=== PATIENT | male | born 1945 | race Caucasian/White ===

== ENCOUNTER 2019-11-20 10:53 | Outpatient (CLI) | payer MEDICARE, SELFPAY ==
--- NOTE | ~2019-11-20 | US_ITS ---
US breast RT complete INDICATION: Breast tenderness TECHNIQUE: Dedicated right breast ultrasound COMPARISON: No prior studies for comparison. FINDINGS: The right breast is composed of normal heterogeneous echotexture without focal solid or cys tic mass. A breast bud is noted in the subareolar location of the right breast, consistent with gynec omastia. IMPRESSION: 1: Gynecomastia. No sonographic evidence for malignancy. BI-RADS CATEGORY 2 - BENIGN FINDINGS Reviewed, dictated and finalized at location A.
== END 2019-11-20 10:54 | disposition home or self-care (01) ==
PROVIDERS: PCP Family Medicine; Visit Provider Family Medicine
DX: N64.4 Mastodynia (principal); N62 Hypertrophy of breast
CPT/HCPCS: 76641

== ENCOUNTER 2019-11-29 10:11 | Outpatient (CLI) | payer MEDICARE, SELFPAY ==
[2019-11-29 11:45] LABS: Parathyroid Intact 41.3 pg/mL (7.5-53.5)
[2019-11-29 13:27] LABS: Free T4 Free Thyroxine 1.08 ng/mL (0.78-2.19)
[2019-12-02 15:55] LABS: Testosterone Free 22.9 pg/mL (30.0-135.0); Testosterone Total 214 ng/dL (250-1100)
[2019-12-03 06:21] LABS: FSH 15.8 mIU/mL (1.6-8.0); LH 8.9 mIU/mL (1.6-15.2)
== END 2019-11-29 10:12 | disposition home or self-care (01) ==
PROVIDERS: PCP Family Medicine; Visit Provider Family Medicine
DX: N62 Hypertrophy of breast (principal); Z79.899 Other long term (current) drug therapy
CPT/HCPCS: 36415; 83001; 83002; 83970; 84402; 84403; 84439; 84443

== ENCOUNTER 2019-12-21 10:33 | Outpatient (CLI) | payer MEDICARE, SELFPAY ==
--- NOTE | ~2019-12-21 | MR_ITS ---
EXAMINATION: MR lumbar spine wo [facility] EXAM DATE: 12/21/2019 12:16 INDICATION: Left leg pain. TECHNIQUE: Multi-sequential, multiplanar MR images of the lumbar spine were obtained without contrast . Sagittal T1, T2, T2 fat saturation images. Axial T2 weighted images. There is no prior study for comparison. FINDINGS: Moderate to severe disc disease at L2-3 and L5-S1, moderate at the other lumbar levels. The conus medullaris terminates at the L1/2 level and has normal signal intensity and morphology. There is 3 mm retrolisthesis L2 on L3, L3 on L4. There is 4 mm retrolisthesis L5 on S1. 3 mm anterolisthes is L4 on L5. Mild diffuse loss of vertebral body heights. Paraspinal soft tissue is unremarkable. Level by level evaluation: T12-L1: Disc does not extend beyond the endplate margin. Facet arthropathy: Mild to moderate. Neural foraminal stenosis: No stenosis. Central canal stenosis: No stenosis. L1-L2: There is a mild diffuse disc bulge. Facet arthropathy: Mild to moderate. Neural foraminal stenosis: No stenosis. Central canal stenosis: No stenosis. L2-L3: There is a moderate diffuse disc bulge. Facet arthropathy: Moderate. Neural foraminal stenosis: Moderate to severe right, mild to moderate left. Central canal stenosis: Mild to moderate. L3-L4: There is a moderate diffuse disc bulge. Facet arthropathy: Severe right, moderate left. Ligamentum flavum enlargement. Neural foraminal stenosis: Moderate left, mild to moderate right. Central canal stenosis: Moderate. L4-L5: There is a large diffuse disc bulge. Facet arthropathy: Severe . Ligamentum flavum enlargement. Neural foraminal stenosis: Mild to moderate bilateral. Central canal stenosis: Moderate to severe. L5-S1: There is a moderate diffuse disc bulge superimposed left central protrusion causing significan t left lateral recess narrowing, mass effect on traversing S1 nerve root Facet arthropathy: Moderate right, mild to moderate left. Neural foraminal stenosis: Moderate to severe bilateral. Central canal stenosis: Moderate to severe. IMPRESSION: 1. Moderate to severe central canal stenosis L4-5 and L5-S1. 2. L5-S1 moderate to severe neural foraminal stenosis with superimposed left central protrusion caus ing mass effect on traversing S1 nerve root. 3. Lumbar spondylosis detailed above. Reviewed, dictated and finalized at location A. IMPRESSION: 1. Moderate to severe central canal stenosis L4-5 and L5-S1. 2. L5-S1 moderate to severe neural foraminal stenosis with superimposed left c entral protrusion causing mass effect on traversing S1 nerve root. 3. Lumbar spondylosis detailed above.
== END 2019-12-21 10:34 | disposition home or self-care (01) ==
PROVIDERS: PCP Family Medicine; Visit Provider Orthopaedic Surgery
DX: M51.16 Intervertebral disc disorders with radiculopathy, lumbar region (principal); M48.07 Spinal stenosis, lumbosacral region; M47.816 Spondylosis without myelopathy or radiculopathy, lumbar region
CPT/HCPCS: 72148

== ENCOUNTER 2020-08-15 11:03 | Observation (INO) | payer MEDICARE, SELFPAY ==
[2020-08-15] VITALS (7 sets, daily range): BP systolic 116–153; BP diastolic 62–83; PULSE 69–85; RESP 14–21; TEMP 36.4–36.6; O2SAT 94–99; BMI 36.6
--- NOTE | ~2020-08-15 | XR_ITS ---
XR chest 2V DATE: 08/15/2020 12:26 INDICATION: Midsternal chest pain radiating to back and neck TECHNIQUE: PA and lateral views COMPARISON: 06/14/2018 PA and lateral chest FINDINGS: Normal heart size. No hilar or mediastinal enlargement. Aortic arch calcification and mild aortic unfolding. No pulmonary infiltrate or consolidation, pleural effusion or pulmonary vascular congestion or pneumo thorax is detected. Diffuse idiopathic skeletal hyperostosis of the thoracic spine. Osteoarthritic changes at the glenohumeral joints. IMPRESSION: No active cardiopulmonary disease Aortic atherosclerosis Diffuse idiopathic skeletal hyperostosis of the thoracic spine. Reviewed, dictated and finalized at location B. ER OPERATOR
--- NOTE | 2020-08-15 11:08 | ECG_ITS ---
Measurements Intervals [place] Rate: 80 P: 52 VA: 167 QRS: -5 QRSD: 97 T: 64 QT: 362 QTc: 419 Interpretive Statements SINUS RHYTHM ATRIAL PREMATURE COMPLEX DELAYED PRECORDIAL R/S TRANSITION BASELINE WANDER- II, III, V1 BORDERLINE ECG Electronically Signed On 08-15-2020 12:02:57 SHE[employer]ROCK APPLICATOR by Adi Matute D.O.
[2020-08-15 12:16] LABS: Basophils Percent Auto 0.6 % (0.2-1.2); Eosinophils Percent Auto 0.6 % (0-4.4); Hematocrit 45.6 % (42.0-52.0); Hemoglobin 15.4 g/dL (14.0-18.0); Immature Granulocyte Absolute 0.01 K/mm3 (0.00-0.031); Immature Granulocyte Percent A 0.1 % (0-0.5); Lymphocytes Absolute Auto 1.12 K/mm3 (0.9-3.2); Lymphocytes Percent Auto 15.5 % (18.3-44.2); Mean Corpuscular HGB Conc 33.8 g/dl (32-36); Mean Corpuscular Hemoglobin 30.7 pg (26-34); Mean Corpuscular Volume 90.8 fl (80-100); Mean Platelet Volume 8.7 fl (7.4-10.4); Monocytes Absolute Auto 0.9 K/mm3 (0.1-0.6); Monocytes Percent Auto 11.9 % (2.6-8.5); Neutrophils Absolute Auto 5.2 K/mm3 (1.3-6.7); Neutrophils Percent Auto 71.3 % (45.5-73.1); Platelet Count Result 161 k/mm3 (150-375); Red Blood Count 5.02 M/mm3 (4.6-6.20); Red Cell Distribution Width 12.4 % (11.5-14.5); White Blood Count 7.2 K/mm3 (4.5-10.0)
[2020-08-15 12:25] LABS: INR 0.9; Prothrombin Time 13.1 Seconds (11.1-14.7)
[2020-08-15 12:34] LABS: Anion Gap 8 mmol/L (8-16); Blood Urea Nitrogen 18 mg/dL (9-20); Calcium 9.1 mg/dL (8.4-10.2); Carbon Dioxide 31 mmol/L (22-30); Chloride 100 mmol/L (98-107); Estimated CRCL calculation 95 ml/min; Estimated Glomerular Filt Rate > 60; Glucose 100 mg/dL (75-110); Potassium 4.1 mmol/L (3.4-5.0); Sodium 139 mmol/L (137-145)
[2020-08-15 12:41] LABS: Troponin I < 0.012 ng/mL (0.000-0.034)
--- NOTE | 2020-08-15 12:42 | ED.CHESTPAIN ---
HPI - Chest Pain General Chief Complaint: Chest Pain Stated Complaint: chest pressure onset last night Time Seen by Provider: 08/15/20 11:11 Source: patient Mode of arrival: ambulatory Limitations: no limitations History of Present Illness HPI narrative: A 75-year-old male presents to the emergency department today with complaints of chest pressure that started earlier this morning. Patient states that he noticed it around 3:57 AM. Patient states that he was feeling a strong pressure that had persisted for several hours this morning. He did note however that by the time he arrived in the ED and laid down here it had subsided. Patient stated that at the worst the pressure felt like a cinder block on his chest. He denies ever having had this before. Patient does endorse a history of hypertension and hyperlipidemia. Denies any smoking history. He does note some cardiac history within his family members. Related Data Home Medications Medication Instructions Recorded Confirmed aspirin 81 mg tablet,delayed 81 mg PO DAILY 11/13/19 08/07/20 release Allergies Allergy/AdvReac Type Severity Reaction Status Date / Time Penicillins Allergy Unknown Unknown Verified 08/15/20 11:25 Review of Systems Review of Systems: Narrative: CONSTITUTIONAL: Denies fever, chills, or sweats. EYES: Denies visual changes, redness, or discharge. ENT: Denies rhinorrhea, congestion, sore throat, or otalgia. CARDIOVASCULAR: Denies palpitations, or edema. Endorses chest pain RESPIRATORY: Denies cough or dyspnea. GASTROINTESTINAL: Denies abdominal pain, nausea, vomiting, or diarrhea. GENITOURINARY: Denies dysuria or hematuria. SKIN: Denies rash or itching. MUSCULOSKELETAL: Denies back pain, joint pain, or myalgia. NEUROLOGIC: Denies headache, numbness, dizziness, or weakness. PSYCHIATRIC: Denies anxiety or depression. FOR[facility]LY [facility] Past Medical History Medical History Prostate cancer Radiculopathy due to lumbar intervertebral disc disorder Trigger finger, left ring finger Trigger finger, right ring finger Surgical History Surgical History History of knee replacement (~03/2018) right knee History of knee replacement (~03/2019) left Family History Family History Father Family history of cardiovascular disease Family history of malignant neoplasm Family history of lymphoma Sibling Family history of cardiovascular disease Mother Family history of Alzheimer's disease Social History Social History Smoking status: Never smoker Alcohol intake: current Exam Narrative: Exam Narrative: GENERAL: Well-appearing, well-nourished, and in no acute distress. HEAD: Normocephalic, atraumatic. EYES: PERRLA and EOMI. ENT: Nares clear, no rhinorrhea or epistaxis. Mucous membranes moist. NECK: Supple. No adenopathy or masses. No carotid bruits or JVD CHEST: Clear to auscultation. No respiratory distress. No wheezes rales or rhonchi HEART: Regular rate and rhythm. No murmur heard. Normal peripheral pulses. ABDOMEN: Soft, nontender, nondistended, normal active bowel sounds. EXTREMITIES: Normal range of motion. No edema. SKIN: Warm, dry, no rash. NEURO: No focal deficits. Alert and oriented x3. PSYCH: Normal mood and affect. Course Consultations Consultation #1: Discussed case, presentation and evaluation with Dr. Gonzalez. After full details were discussed he agrees to accept the patient for observation to the chest pain center. Time: 13:29 Vital Signs Vital signs: Vital Signs Temperature 36.4 C 08/15/20 11:17 Pulse Rate 80 08/15/20 11:17 Respiratory Rate 21 H 08/15/20 11:17 Blood Pressure 153/83 H 08/15/20 11:17 Pulse Oximetry 99 08/15/20 11:17 Temperature 36.4 C 08/15/20 11:17 Pulse Rate 80 08/15/20 11:17
[2020-08-15] MEDS: ASPIRIN 81 MG CHEWABLE TABLET 324 MG PO (13:30)
--- NOTE | 2020-08-15 15:51 | ADMGEN ---
This patient, Clark Menard, was admitted to IMU Room 202-. Patient/family oriented to hospital policies and general routines including ID bracelet, bed and alarms, visiting hours, pain management, procedures, bathroom and other care routines, personal items, smoking policy, room service/diet, and visiting hours. Information on how to activate the Rapid Response Team has been discussed. Patient/Family are encouraged to report perceived risks to care and to ask questions if they do not understand what they are told or what they should do.
[2020-08-15 15:58] LABS: Troponin I < 0.012 ng/mL (0.000-0.034)
--- NOTE | 2020-08-15 16:12 | PM.IMHP ---
H&P: HPI History of Present Illness Date/Time: 08/15/20 16:12 Chief Complaint: Chest pain Narrative: Clark Menard is a 75 year old male without any previous history of cardiac problems was admitted to the hospital on my service as a chest Pain Center patient this afternoon at the request of the ED physician. Patient states that he has been feeling well but awakened at about 3:00 a.m. in the morning last night with some chest pain that was not particularly concerning to him in immediately but it was something he has never experienced in the past. He states that it was a mild low substernal central discomfort that did not radiate anywhere. There was no associated shortness of breath diaphoresis nausea or vomiting. The symptom was simply persistent and nagging and so he called his physician told him that if he gets worse he should go to the emergency room. He then called a family member who is an ER physician out of town and he instructed to go to the emergency room immediately. He came into the ED this morning was evaluated. By the time he got there the symptom was subsiding on its own. Altogether lasted for about 8 hours. The patient in the emergency room had a normal electrocardiogram recorded. His 1st set of troponin levels were normal and the ED physician wanted him admitted as a chest Pain Center patient. He otherwise considers himself to be in fairly good health at age 75. He does exercise regularly on a recumbent bicycle that he has in his house. During the nice weather he enjoys going for walks for exercise. He does carry the diagnosis of hypertension and mild dyslipidemia. He is on medication for this with good control. He has never been a smoker and there is no family history of premature coronary disease. 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 Review of Systems Constitutional: Constitutional: Reports no additional constitutional complaints Eyes: Eyes: Reports no additional eye complaints ENT: Reports system reviewed and no additional complaints, except as documented Cardiovascular: Cardiovascular: Reports as per HPI Respiratory: Respiratory: Reports no additional respiratory complaints Gastrointestinal: Gastrointestinal: Reports no additional gastrointestinal complaints Musculoskeletal: Musculoskeletal: Reports no additional musculoskeletal complaints Integumentary/Breasts: Skin/Breast: Reports system reviewed and no additional complaints, except as docu Neurologic: Reports system reviewed and no additional complaints, except as documented [facility] Past Medical History Medical History Prostate cancer Radiculopathy due to lumbar intervertebral disc disorder Trigger finger, left ring finger Trigger finger, right ring finger Surgical History Surgical History History of knee replacement (~03/2018) right knee History of knee replacement (~03/2019) left Family History Family History Father Family history of cardiovascular disease Family history of malignant neoplasm Family history of lymphoma Sibling Family history of cardiovascular disease Mother Family history of Alzheimer's disease Social History Social History Smoking status: Never smoker Second hand tobacco smoke exposure: Yes Alcohol intake: current Drinks per week: 14 Alcohol use details: 2-3 beers/day Substance use: never Substance use type: does not use Living arrangements: with family Gender identity (if verbalized by the patient): Male Spiritual care concerns: No Meds Home Medications and Allergies Home Medications Medication Instructions Recorded Confirmed Type aspirin 81 mg tablet,delayed 81 mg PO DAILY 11/13/19 08/15/20 History release hydrochlorothiazide
[2020-08-15 18:59] LABS: Troponin I < 0.012 ng/mL (0.000-0.034)
[2020-08-16] VITALS: BP 123/69; PULSE 69; PULSE 71; RESP 16; TEMP 36.5; O2SAT 95
[2020-08-16 02:00] VITALS: PULSE 82
[2020-08-16 04:00] VITALS: BP 120/77; PULSE 66; PULSE 70; RESP 16; TEMP 36.3; O2SAT 97
[2020-08-16 05:16] LABS: Basophils Percent Auto 0.7 % (0.2-1.2); Eosinophils Absolute Auto 0.1 K/mm3 (0-0.3); Eosinophils Percent Auto 1.5 % (0-4.4); Hematocrit 42.9 % (42.0-52.0); Hemoglobin 14.3 g/dL (14.0-18.0); Immature Granulocyte Absolute 0.02 K/mm3 (0.00-0.031); Immature Granulocyte Percent A 0.4 % (0-0.5); Lymphocytes Absolute Auto 1.27 K/mm3 (0.9-3.2); Lymphocytes Percent Auto 23.6 % (18.3-44.2); Mean Corpuscular HGB Conc 33.3 g/dl (32-36); Mean Corpuscular Hemoglobin 30.6 pg (26-34); Mean Corpuscular Volume 91.7 fl (80-100); Mean Platelet Volume 8.9 fl (7.4-10.4); Monocytes Absolute Auto 0.8 K/mm3 (0.1-0.6); Monocytes Percent Auto 13.9 % (2.6-8.5); Neutrophils Absolute Auto 3.2 K/mm3 (1.3-6.7); Neutrophils Percent Auto 59.9 % (45.5-73.1); Platelet Count Result 152 k/mm3 (150-375); Red Blood Count 4.68 M/mm3 (4.6-6.20); Red Cell Distribution Width 12.6 % (11.5-14.5); White Blood Count 5.4 K/mm3 (4.5-10.0)
[2020-08-16 05:42] VITALS: PULSE 66
[2020-08-16 08:00] VITALS: BP 129/75; PULSE 73; PULSE 84; RESP 16; TEMP 36.9; O2SAT 96; O2SAT 97
[2020-08-16 08:46] LABS: Anion Gap 8 mmol/L (8-16); Blood Urea Nitrogen 19 mg/dL (9-20); Carbon Dioxide 29 mmol/L (22-30); Chloride 102 mmol/L (98-107); Estimated CRCL calculation 95 ml/min; Estimated Glomerular Filt Rate > 60; Glucose 127 mg/dL (75-110); Potassium 3.5 mmol/L (3.4-5.0); Sodium 139 mmol/L (137-145)
[2020-08-16 09:25] VITALS: O2SAT 97
--- NOTE | 2020-08-16 10:13 | PM.DS ---
DS: Admitting Diagnosis Admitting Diagnosis Admitting Diagnosis: Chest pain DS: Discharge Diagnosis Discharge Diagnosis (1) Chest pain: Code(s): R07.9 - Chest pain, unspecified Status: Acute Assessment and Plan: The patient was admitted after several hours of chest discomfort and pressure, which subsided spontaneously. His troponins were all normal. His EKG was normal. Chest x-ray showed atherosclerosis of the aorta (personally reviewed, I could not see any so there must not be much there) and DJD of the spine. He had no further chest discomfort. Blood pressure remained well controlled. He was deemed stable for discharge in outpatient follow-up. A stress echo is planned. He was instructed to return to the emergency room if he had further problems. The chest discomfort may have been secondary to acid reflux. Medications were unchanged. DS: Summary Hospital Course Hospital Course: As above Time Spent with Patient Time attestation: Total time spent providing and/or coordinating discharge services: 40 minutes Exam Const: General: comfortable and no acute distress HENMT: Mouth: Yes moist mucous membranes Eyes: EOM: EOMs intact bilaterally Neck: Neck: supple Resp: Effort & Inspection: normal respiratory effort Auscultation: clear to auscultation bilaterally Cardio: Rate: regular rate Rhythm: regular rhythm Heart sounds: no murmurs GI: Inspection: non-distended GI Palp: Yes Soft to palpation and No Firmness to palpation present (GI) Skin: General skin exam: no rashes or lesions noted Neuro: Motor exam (neuro): Normal motor muscle tone present throughout Extrem: General: edema (trace pretibial edema) Psych: Appearance: grossly normal Mental Status: mental status grossly normal Speech and movement: Normal speech and movement present Affect: normal affect Thought content: Yes Normal thought content present DS: Data Data Completed and Pending Labs on day of discharge: Labs from last 24 hours 08/16/20 08/16/20 08/15/20 08:29 04:35 18:03 WBC 5.4 RBC 4.68 Hgb 14.3 Hct 42.9 MCV 91.7 MCH 30.6 MCHC 33.3 RDW 12.6 Plt Count 152 MPV 8.9 Immature Gran % (Auto) 0.4 Neut % (Auto) 59.9 Lymph % (Auto) 23.6 [place] % (Auto) 13.9 H Eos % (Auto) 1.5 Baso % (Auto) 0.7 Lymph # (Auto) 1.27 [place] # (Auto) 0.8 H Eos # (Auto) 0.1 Baso # (Auto) 0.0 Abs Immat Gran (auto) 0.02 Absolute Neuts (auto) 3.2 Absolute Nucleated RBC 0.0 Nucleated RBC % 0.0 PT INR APTT Sodium 139 Potassium 3.5 Chloride 102 Carbon Dioxide 29 Anion Gap 8 BUN 19 Creatinine 0.80 Estim Creat Clear Calc 95 Estimated GFR > 60 Glucose 127 H Calcium 9.0 Troponin I < 0.012 08/15/20 08/15/20 08/15/20 15:16 12:09 12:09 WBC RBC Hgb Hct MCV MCH MCHC RDW Plt Count MPV Immature Gran % (Auto) Neut % (Auto) Lymph % (Auto) [place] % (Auto) Eos % (Auto) Baso % (Auto) Lymph # (Auto) [place] # (Auto) Eos # (Auto) Baso # (Auto) Abs Immat Gran (auto) Absolute Neuts (auto) Absolute Nucleated RBC Nucleated RBC % PT 13.1 INR 0.9 APTT 26.0 Sodium 139 Potassium 4.1 Chloride 100 Carbon Dioxide 31 H Anion Gap 8 BUN 18 Creatinine 0.80 Estim Creat Clear Calc 95 Estimated GFR > 60 Glucose 100 Calcium 9.1 Troponin I < 0.012 < 0.012 08/15/20 12:09 WBC 7.2 RBC 5.02 Hgb 15.4 Hct 45.6 MCV 90.8 MCH 30.7 MCHC 33.8 RDW 12.4 Plt Count 161 MPV 8.7 Immature Gran % (Auto) 0.1 Neut % (Auto) 71.3 Lymph % (Auto) 15.5 L Fall[place] % (Auto) 11.9 H Eos % (Auto) 0.6 Baso % (Auto) 0.6 Lymph # (Auto) 1.12 [place] # (Auto) 0.9 H Eos # (Auto) 0.0 Baso # (Auto) 0.0 Abs Immat Gran (auto) 0.01 Absolute Neuts (auto) 5.2 Absolute Nucleated RBC 0.0 Nucleated RBC % 0.0 PT INR APTT S
[2020-08-16] MEDS: ASPIRIN 81 MG ENTERIC TABLET PO (10:41)
[2020-08-16] MEDS: LOSARTAN POTASSIUM 100 MG TABLET PO (10:41)
[2020-08-16] MEDS: PANTOPRAZOLE 40 MG TABLET PO (10:42)
[2020-08-16] MEDS: hydroCHLOROthiazide 25 MG TABLET PO (10:42)
== END 2020-08-16 11:58 | disposition home or self-care (01) ==
LOC: ANHED 13:41 → ANHIMU 16:02
PROVIDERS: Admitting Provider Specialist; Emergency Provider Emergency Medicine; PCP Family Medicine; Visit Provider Internal Medicine Cardiovascular Disease
DX: R07.9 Chest pain, unspecified (principal); I10 Essential (primary) hypertension; E78.5 Hyperlipidemia, unspecified; Z85.46 Personal history of malignant neoplasm of prostate; Z96.653 Presence of artificial knee joint, bilateral
CPT/HCPCS: 36415; 71046; 80048; 84484; 85025; 85610; 85730; 93005; 99285; A9270; G0378

== ENCOUNTER 2020-12-22 00:53 | Day surgery (SDC) | payer MEDICARE, SELFPAY ==
[2020-12-08 14:33] VITALS: BMI 35.4
[2020-12-22 10:08] VITALS: BP 135/71; PULSE 66; RESP 20; TEMP 36.3; O2SAT 97
--- NOTE | 2020-12-22 10:19 | WPDGICN ---
Assessment and Plan Assessment and plan (1) Atypical chest pain: Code(s): R07.89 - Other chest pain Status: Acute Assessment and Plan: Because of patient's chest pain is been to the ER several occasions. Plan is for EGD to assess possible causes of pain. He has been treated for acid reflux in the past were. Will continue Nexium for the immediate future. (2) Obesity (BMI 30-39.9): Code(s): E66.9 - Obesity, unspecified Status: Acute (3) History of colon polyps: Code(s): Z86.010 - Personal history of colonic polyps Status: Acute Assessment and Plan: Follow-up colonoscopy at 5 year intervals is suggested. (4) Gastro-esophageal reflux disease without esophagitis: Code(s): K21.9 - Gastro-esophageal reflux disease without esophagitis Status: Acute Assessment and Plan: Patient is on Nexium 40 mg p.o. daily. Plan is to continue PPI as well as anti-reflux measures. EGD will be performed today. GI Consult Note Consult date/time: 12/22/20 10:19 HPI: Clark Menard is a 75 year old male presents for EGD. Patient has had episodes of epigastric and substernal chest discomfort. He presents today for follow-up examination. Patient denies any recent chest or epigastric pain. He has had no dysphagia or weight loss. His family history is noncontributory. An EGD is planned because of several ER visits for his previous chest discomfort. Patient currently on Nexium 40 mg p.o. daily. He admits to rather frequent alcohol intake as well. Review of Systems Review of Systems: All systems reviewed & are unremarkable except as noted in HPI and below PMFSH Past Medical History Medical History Prostate cancer Radiculopathy due to lumbar intervertebral disc disorder Trigger finger, left ring finger Trigger finger, right ring finger Surgical History Surgical History History of knee replacement (~03/2018) right knee History of knee replacement (~03/2019) left Family History Family History Father Family history of cardiovascular disease Family history of malignant neoplasm Family history of lymphoma Sibling Family history of cardiovascular disease Mother Family history of Alzheimer's disease Social History Social History Smoking status: Never smoker Second hand tobacco smoke exposure: Yes Alcohol intake: current Drinks per week: 12 Substance use: never Substance use type: does not use Living arrangements: with family Gender identity (if verbalized by the patient): Male Spiritual care concerns: No Meds Home Medications and Allergies Home Medications Medication Instructions Recorded Confirmed Type aspirin 81 mg tablet,delayed 81 mg PO DAILY 11/13/19 12/08/20 History release hydrochlorothiazide 25 mg tablet 25 mg PO DAILY #90 tablet 01/21/20 12/08/20 Rx losartan 100 mg tablet 100 mg PO DAILY #90 tablet 07/28/20 12/08/20 Rx esomeprazole magnesium [Nexium] 40 mg PO DAILY 08/15/20 12/08/20 History simvastatin 10 mg tablet 10 mg PO DAILY #90 tablet 09/03/20 12/08/20 Rx Allergies Allergy/AdvReac Type Severity Reaction Status Date / Time Penicillins Allergy Unknown Unknown Verified 12/22/20 10:06 Vital Signs Vital Signs - 24 hr 12/22/20 10:08 Temperature 97.4 F L Pulse Rate 66 Respiratory Rate 20 Blood Pressure 135/71 Pulse Oximetry 97 Exam Narrative: Exam Narrative: Physical exam reveals patient be alert. Vital signs stable. HEENT exam unremarkable. Patient is anicteric. Lungs are clear to auscultation and percussion. Heart is without murmur or extra sounds. Abdominal exam bowel sounds are present soft nontender with no hepatosplenomegaly. Digital external rectal exam normal.
[2020-12-22] MEDS: LACTATED RINGERS 1,000 ML 150 ML IV CONT (10:20)
--- NOTE | 2020-12-22 10:40 | WPDANESEPPF ---
Anes - Initial Pre Proc Eval Procedure: Operation Date: 12/22/20 10:45 Proposed Procedures p Esophagogastroduodenoscopy - Tyshawn Zamarripa MD Date/Time: 12/22/20 10:40 Surgeon: Tyshawn Zamarripa MD Pre Op Diagnosis: GERD, Atypical Chest Pain Patient Data Age: 75 Gender: M Height: 1.88 m Weight: 127.3 kg Last Vital Signs Temp 97.4 F L 12/22/20 10:08 Pulse 66 12/22/20 10:08 Resp 20 12/22/20 10:08 BP 135/71 12/22/20 10:08 Pulse Ox 97 12/22/20 10:08 Allergies Allergy/AdvReac Type Severity Reaction Status Date / Time Penicillins Allergy Unknown Unknown Verified 12/22/20 10:06 Home Medications Medication Instructions Recorded Confirmed Type aspirin 81 mg tablet,delayed 81 mg PO DAILY 11/13/19 12/08/20 History release hydrochlorothiazide 25 mg tablet 25 mg PO DAILY #90 tablet 01/21/20 12/08/20 Rx losartan 100 mg tablet 100 mg PO DAILY #90 tablet 07/28/20 12/08/20 Rx esomeprazole magnesium [Nexium] 40 mg PO DAILY 08/15/20 12/08/20 History simvastatin 10 mg tablet 10 mg PO DAILY #90 tablet 09/03/20 12/08/20 Rx Patient hx anesthesia problems: none Family hx anesthesia problems: none PMFSH Past Medical History Medical History Prostate cancer Radiculopathy due to lumbar intervertebral disc disorder Trigger finger, left ring finger Trigger finger, right ring finger Surgical History Surgical History History of knee replacement (~03/2018) right knee History of knee replacement (~03/2019) left Family History Family History Father Family history of cardiovascular disease Family history of malignant neoplasm Family history of lymphoma Sibling Family history of cardiovascular disease Mother Family history of Alzheimer's disease Social History Social History Smoking status: Never smoker Second hand tobacco smoke exposure: Yes Alcohol intake: current Drinks per week: 12 Substance use: never Substance use type: does not use Living arrangements: with family Gender identity (if verbalized by the patient): Male Spiritual care concerns: No Anes - Eval Final PreProcedure Day of Procedure 12/22/20 10:40 Patient weight: obese Heart: regular rate and rhythm Lungs: clear to auscultation Airway: Mallampati scale class II Neurological: alert and oriented Last oral intake: >/= 8 hours ASA classification: III Emergent: no Anesthetic plan: proceed Anesthesia type and monitoring: general and standard monitoring Informed Consent: The patient's anesthetic plan and its attendant risks and benefits were discussed with the patient/family/POA. Questions were solicited and answers provided to the satisfaction of the patient/family/POA.
[2020-12-22] MEDS: BENZOCAINE (*SP) 60 ML SPRAY CAN (HURRICAINE) 1 SPRAY MUCOUS MEM (11:01)
[2020-12-22 11:10] VITALS: BP 120/75; PULSE 71; RESP 25; O2SAT 96
[2020-12-22 11:20] VITALS: BP 131/84; PULSE 19; RESP 19; O2SAT 97
[2020-12-22 11:30] VITALS: BP 140/84; PULSE 16; RESP 16; O2SAT 96
== END 2020-12-22 11:37 | disposition home or self-care (01) ==
PROVIDERS: PCP Family Medicine; Visit Provider Internal Medicine Gastroenterology
PROC: 0DJ08ZZ Inspection of Upper Intestinal Tract, Via Natural or Artificial Opening Endoscopic (ICD-10-PCS; CPT 43235; principal; 2020-12-22 10:45)
DX: R07.89 Other chest pain (principal); Q39.4 Esophageal web; K21.9 Gastro-esophageal reflux disease without esophagitis; Z79.82 Long term (current) use of aspirin; E66.9 Obesity, unspecified; Z68.36 Body mass index [BMI] 36.0-36.9, adult
CPT/HCPCS: 43450; J2704; J7120

== ENCOUNTER 2022-03-22 01:20 | Day surgery (SDC) | payer MEDICARE, SELFPAY ==
[2022-03-05 14:03] VITALS: BMI 36.9
[2022-03-22 09:16] VITALS: BP 142/76; PULSE 66; RESP 16; TEMP 36.1; O2SAT 96; BMI 35.3
--- NOTE | 2022-03-22 09:21 | WPDANESEPPF ---
Anes - Initial Pre Proc Eval Procedure: Operation Date: 03/22/22 10:00 Proposed Procedures p Screening Colonoscopy - Tyshawn Zamarripa MD Date/Time: 03/22/22 09:21 Surgeon: Tyshawn Zamarripa MD Pre Op Diagnosis: hx colon polyps Patient Data Age: 77 Gender: M Height: 1.85 m Weight: 121.4 kg Last Vital Signs Temp 36.1 C L 03/22/22 09:16 Pulse 66 03/22/22 09:16 Resp 16 03/22/22 09:16 BP 142/76 H 03/22/22 09:16 Pulse Ox 96 03/22/22 09:16 O2 Del Method Room Air 03/22/22 09:16 Allergies Allergy/AdvReac Type Severity Reaction Status Date / Time Penicillins Allergy Unknown Unknown Verified 03/22/22 09:15 Home Medications Medication Instructions Recorded Confirmed Type esomeprazole magnesium 40 mg 40 mg PO DAILY 08/15/20 03/05/22 History capsule,delayed release (Nexium) simvastatin 10 mg tablet 10 mg PO DAILY #90 tabs 09/03/21 03/05/22 Rx hydrochlorothiazide 25 mg tablet See Rx Instructions .Route 01/15/22 03/05/22 Rx .COMPLEX #90 tabs furosemide 20 mg tablet See Rx Instructions .Route 02/10/22 03/05/22 Rx .COMPLEX #90 tabs sodium,potassium,mag sulfates 17.5 See Rx Instructions PO .COMPLEX 02/12/22 03/22/22 Rx gram-3.13 gram-1.6 gram oral soln #354 mL (Suprep Bowel Prep Kit) losartan 100 mg tablet 100 mg PO DAILY #90 tabs 03/04/22 03/05/22 Rx vitamins A,C,N-dcyj-mqchgz 2,148 2 tablet PO BID 03/05/22 03/05/22 History mcg-113 mg-45 mg-17.4 mg tablet Patient hx anesthesia problems: none Family hx anesthesia problems: none Results Review: All pre-operative results and documents have been reviewed as part of the pre-operative evaluation. [facility] Past Medical History Medical History Prostate cancer Radiculopathy due to lumbar intervertebral disc disorder Trigger finger, left ring finger Trigger finger, right ring finger Surgical History Surgical History History of knee replacement (~03/2018) right knee History of knee replacement (~03/2019) left Family History Family History Father Family history of cardiovascular disease Family history of malignant neoplasm Family history of lymphoma Sibling Family history of cardiovascular disease Mother Family history of Alzheimer's disease Social History Social History Smoking status: Never smoker Second hand tobacco smoke exposure: Yes Alcohol intake: current Drinks per week: 10 Alcohol use details: BEER Substance use: never Substance use type: does not use Living arrangements: with family Gender identity (if verbalized by the patient): Male Spiritual care concerns: No Anes - Eval Final PreProcedure Day of Procedure 03/22/22 09:21 Patient weight: obese Heart: regular rate and rhythm Lungs: clear to auscultation Airway: Mallampati scale class II Neurological: alert and oriented Last oral intake: >/= 8 hours ASA classification: III Emergent: no Anesthetic plan: proceed Anesthesia type and monitoring: general GIVS and standard monitoring Results Review: All pre-operative results and documents have been reviewed as part of the pre-operative evaluation. Informed Consent: The patient's anesthetic plan and its attendant risks and benefits were discussed with the patient/family/POA. Questions were solicited and answers provided to the satisfaction of the patient/family/POA.
[2022-03-22] MEDS: LACTATED RINGERS 1,000 ML 150 ML IV CONT (09:30)
--- NOTE | 2022-03-22 09:30 | PM.HPGS ---
History of Present Illness History of Present Illness Consent: Risks, benefits, and alternatives have been discussed and questions answered. Patient agrees to proceed with procedure. Chief complaint: hx colon polyps Narrative: Clark Menard is a 77 year old male Presents for screening colonoscopy. Patient's current weight appetite and bowel movements are normal. He denies abdominal pain. Patient has a history of tubular adenoma removed from the colon by previous colonoscopy 2016. Review of Systems Review of Systems: Review of systems noncontributory. [facility] Past Medical History Medical History Prostate cancer Radiculopathy due to lumbar intervertebral disc disorder Trigger finger, left ring finger Trigger finger, right ring finger Surgical History Surgical History History of knee replacement (~03/2018) right knee History of knee replacement (~03/2019) left Family History Family History Father Family history of cardiovascular disease Family history of malignant neoplasm Family history of lymphoma Sibling Family history of cardiovascular disease Mother Family history of Alzheimer's disease Social History Social History Smoking status: Never smoker Second hand tobacco smoke exposure: Yes Alcohol intake: current Drinks per week: 10 Alcohol use details: BEER Substance use: never Substance use type: does not use Living arrangements: with family Gender identity (if verbalized by the patient): Male Spiritual care concerns: No Meds Home Medications and Allergies Home Medications Medication Instructions Recorded Confirmed Type esomeprazole magnesium 40 mg 40 mg PO DAILY 08/15/20 03/05/22 History capsule,delayed release (Nexium) simvastatin 10 mg tablet 10 mg PO DAILY #90 tabs 09/03/21 03/05/22 Rx hydrochlorothiazide 25 mg tablet See Rx Instructions .Route 01/15/22 03/05/22 Rx .COMPLEX #90 tabs furosemide 20 mg tablet See Rx Instructions .Route 02/10/22 03/05/22 Rx .COMPLEX #90 tabs sodium,potassium,mag sulfates 17.5 See Rx Instructions PO .COMPLEX 02/12/22 03/22/22 Rx gram-3.13 gram-1.6 gram oral soln #354 mL (Suprep Bowel Prep Kit) losartan 100 mg tablet 100 mg PO DAILY #90 tabs 03/04/22 03/05/22 Rx vitamins A,C,S-kzcn-pxsiqz 2,148 2 tablet PO BID 03/05/22 03/05/22 History mcg-113 mg-45 mg-17.4 mg tablet Allergies Allergy/AdvReac Type Severity Reaction Status Date / Time Penicillins Allergy Unknown Unknown Verified 03/22/22 09:15 Vital Signs Vital Signs - 24 hr 03/22/22 09:16 Temperature 97 F L Pulse Rate 66 Respiratory Rate 16 Blood Pressure 142/76 H Pulse Oximetry 96 Oxygen Delivery Room Air Exam Narrative: Physical exam reveals patient to be alert. Vital signs stable. HEENT exam is unremarkable. Patient is anicteric. Lungs are clear. Heart without murmur. Abdomen bowel sounds present soft nontender with no organomegaly. Digital external rectal exam is normal. Assessment and Plan Assessment and plan (1) Colon polyp: Code(s): K63.5 - Polyp of colon Status: Acute Assessment and Plan: Patient has a prior history of adenomatous colon polyp removed from the colon 2015. Plan for surveillance colonoscopy at this time. Further recommendations will be given after endoscopy.
[2022-03-22 09:55] VITALS: BP 90/43; PULSE 68; RESP 17; O2SAT 97
[2022-03-22 10:05] VITALS: BP 96/48; PULSE 67; RESP 22; O2SAT 100
[2022-03-22 10:15] VITALS: BP 128/73; PULSE 61; RESP 19; O2SAT 100
== END 2022-03-22 10:25 | disposition home or self-care (01) ==
PROVIDERS: PCP Family Medicine; Visit Provider Internal Medicine Gastroenterology
PROC: 0DJD8ZZ Inspection of Lower Intestinal Tract, Via Natural or Artificial Opening Endoscopic (ICD-10-PCS; CPT 45378; principal; 2022-03-22 10:00)
DX: Z12.11 Encounter for screening for malignant neoplasm of colon (principal); D12.2 Benign neoplasm of ascending colon; Z85.46 Personal history of malignant neoplasm of prostate; K64.8 Other hemorrhoids; M54.16 Radiculopathy, lumbar region; E66.9 Obesity, unspecified; Z68.35 Body mass index [BMI] 35.0-35.9, adult
CPT/HCPCS: 45385; 88305; J2704; J7120

== ENCOUNTER 2022-08-03 10:17 | Outpatient (CLI) | payer MEDICARE, SELFPAY ==
--- NOTE | ~2022-08-03 | CT_ITS ---
EXAMINATION: CT shoulder LT wo con DATE: 08/03/2022 10:47 INDICATION: Left shoulder osteoarthritis. Preoperative planning. TECHNIQUE: Computed tomography (CT) of the left shoulder was performed without intravenous contrast. Automated exposure control and iterative reconstruction technique were employed. The dose-length prod uct was 574.34 mGy-cm. COMPARISON: Left shoulder radiographs 07/22/2022 FINDINGS: Bone alignment is normal. No fracture. There is advanced left glenohumeral joint osteoarthr itis including bone volume loss of glenoid. There are loose bodies in the glenohumeral joint. There i s severe acromioclavicular joint osteoarthritis. There is no asymmetric fatty atrophy of the rotator cuff muscle bellies. IMPRESSION: 1. Advanced left glenohumeral joint osteoarthritis with loose bodies. 2. Severe left acromioclavicular joint osteoarthritis. Reviewed, dictated and finalized at location A. [employer]
== END 2022-08-03 10:18 | disposition home or self-care (01) ==
PROVIDERS: PCP Family Medicine; Visit Provider Physician Assistant Surgical
DX: M19.012 Primary osteoarthritis, left shoulder (principal); M24.012 Loose body in left shoulder
CPT/HCPCS: 73200

== ENCOUNTER 2023-03-30 14:09 | Outpatient (CLI) | payer MEDICARE, SELFPAY ==
--- NOTE | 2023-03-30 14:56 | ECG_ITS ---
Measurements Intervals [place] Rate: 53 P: 69 OK: 186 QRS: -9 QRSD: 105 T: 17 QT: 435 QTc: 411 Interpretive Statements SINUS BRADYCARDIA COMPARED TO ECG 08/15/2020 11:11:47 SINUS BRADYCARDIA NOW PRESENT Electronically Signed On 03-30-2023 19:17:55 CDT by Viola Sneed M.D.
[2023-03-30 15:29] LABS: Basophils Percent Auto 0.8 % (0.2-1.2); Eosinophils Absolute Auto 0.1 K/mm3 (0-0.3); Eosinophils Percent Auto 1.2 % (0-4.4); Hematocrit 42.5 % (42.0-52.0); Immature Granulocyte Absolute 0.01 K/mm3 (0.00-0.031); Immature Granulocyte Percent A 0.2 % (0-0.5); Lymphocytes Absolute Auto 1.22 K/mm3 (0.9-3.2); Lymphocytes Percent Auto 23.5 % (18.3-44.2); Mean Corpuscular HGB Conc 32.9 g/dl (32-36); Monocytes Absolute Auto 0.6 K/mm3 (0.1-0.6); Monocytes Percent Auto 10.6 % (2.6-8.5); Neutrophils Absolute Auto 3.3 K/mm3 (1.3-6.7); Neutrophils Percent Auto 63.7 % (45.5-73.1); Platelet Count Result 166 k/mm3 (150-375); Red Blood Count 4.52 M/mm3 (4.6-6.20); Red Cell Distribution Width 12.5 % (11.5-14.5); White Blood Count 5.2 K/mm3 (4.5-10.0)
[2023-03-30 15:46] LABS: Anion Gap 3 mmol/L (8-16); Blood Urea Nitrogen 25 mg/dL (9-20); Carbon Dioxide 33 mmol/L (22-30); Chloride 102 mmol/L (98-107); Estimated Glomerular Filt Rate > 60; Glucose 128 mg/dL (65-110); Potassium 3.3 mmol/L (3.4-5.0); Sodium 138 mmol/L (137-145)
== END 2023-03-30 14:10 | disposition home or self-care (01) ==
LOC: ANHSURGERY 14:12
PROVIDERS: Anesthesiology; PCP Family Medicine; Visit Provider Orthopaedic Surgery
DX: M19.012 Primary osteoarthritis, left shoulder (principal); E78.00 Pure hypercholesterolemia, unspecified; Z01.818 Encounter for other preprocedural examination
CPT/HCPCS: 36415; 80048; 85025; 87081; 93005

== ENCOUNTER 2023-04-28 01:35 | Day surgery (SDC) | payer MEDICARE, SELFPAY ==
[2023-03-30 14:18] VITALS: BMI 35.9
--- NOTE | 2023-03-30 14:41 | PC.NURSE ---
Report to the Outpatient Waiting Room, entrance under the green pavilion located off [facility], at time __0600 on date __04/28/23 . Planned Procedure Time: _0730 . Time changes happen often and if your time is changed the preop area will call you the afternoon before. - You and your visitor will be asked to self-screen and do not enter if you have any COVID symptoms. - A mask is optional within the hospital at this time. Patients may have clear liquids (water, carbonated beverages, clear teas, apple juice) until 3 hours prior to surgery with a maximum of 20 ounces. - No food from midnight until time of surgery - Infants may have breast milk until 4 hours before surgery, infant formula 6 hours prior to surgery. - Children will be allowed to drink immediately following surgery. If applicable, please bring a bottle or sippy cup to assist with drinking. Juice, water, soda, and popsicles are readily available. For infants on formula, please bring formula the day of surgery. Pacifiers are allowed. Take the following medications with a SIP of water the morning of surgery: ____none DO NOT STOP ANY OF YOUR OTHER PRESCRIPTION MEDICATIONS PRIOR TO SURGERY ?EXCEPT THE FOLLOWING Medications to discontinue per physician IBUPROFEN 7 DAYS PRE OP.LAST DOSE 04/20/23. ALL VITAMINS AND SUPPLEMENTS 3 DAYS PRE OP.LAST DOSE 04/24/23 Please no make-up, nail maori, hairspray, perfume, deodorant, or body powder the day of surgery. No jewelry (including any body piercings) or valuables the day of surgery, leave them at home. Please take a shower or bath the night before, or the morning of, surgery with an antibacterial soap. Wear comfortable, loose fitting clothing. Children are encouraged to wear pajamas. - Jewelry must be removed prior to entering the operating room. Rings and piercings that are not removed may be cut off. - The hospital will not accept responsibility for valuables. - Please leave all valuables, including medications, at home the day of surgery. If you are going home after surgery, a licensed local hazmat driver must drive you home. - NO public transportation without another adult if you receive anesthesia. - We recommend that an adult stay with you for 24 hours following discharge. - We also recommend that you do not drive, make important decision, drink alcoholic beverages, or take any drugs that were not prescribed by your health care provider for at least 24 hours after your discharge time. For Pediatric surgeries, we recommend two adults accompany the child home. Follow any additional instructions given to you from your surgeon. If you or anyone in your household have experienced Covid symptoms in the past week, please notify your surgeon or the nurse liaison at the phone number below for possible testing. VERBAL AND WRITTEN instructions given to ___PATIENT AND WIFE and asked if any additional questions and then verbalized understanding. Patient advised to call surgeon office or pre surgery nurse liaison [phone] if any additional questions.
[2023-03-30 14:55] VITALS: BP 133/74; PULSE 60; RESP 18; TEMP 36.1; O2SAT 97
[2023-04-28] VITALS (17 sets, daily range): BP systolic 90–151; BP diastolic 54–81; PULSE 61–91; RESP 12–20; TEMP 36.1–36.6; O2SAT 90–100
--- NOTE | ~2023-04-28 | XR_ITS ---
EXAMINATION: XR shoulder LT min 2V DATE: 04/28/2023 11:30 INDICATION: Total left shoulder arthroplasty. Postop. TECHNIQUE: 2 views of left shoulder were obtained. COMPARISON: Left shoulder radiographs 07/22/2022 FINDINGS: There is a reverse [id number] total left shoulder arthroplasty in near-anatomic alignm ent. No fracture. There is severe osteoarthritis of acromioclavicular joint. There is gas in the soft tissues, consistent with recent surgery. IMPRESSION: 1. Total left shoulder arthroplasty in near-anatomic alignment. Reviewed, dictated and finalized at location E.
--- NOTE | 2023-04-28 07:17 | WPDHPUPDATE1 ---
History and Physical Update Update Date/Time: 04/28/23 07:17 History and Physical has been reviewed, including an updated exam of the patient. There are NO changes in the patient's condition. Risks, benefits, and alternatives have been discussed and questions answered. Patient agrees to proceed with procedure.
[2023-04-28] MEDS: ACETAMINOPHEN 500 MG TABLET 1000 MG PO ×3 (07:55→23:41)
--- NOTE | 2023-04-28 08:07 | WPDANESEPPF ---
Anes - Initial Pre Proc Eval Procedure: Operation Date: 04/28/23 09:00 Proposed Procedures p Left Reverse Total Shoulder Arthroplasty - Gavino Leigh MD Date/Time: 04/28/23 08:07 Surgeon: Gavino Leigh MD Pre Op Diagnosis: glenohumeral joint arthritis left shoulder Patient Data Age: 78 Gender: M Height: 1.85 m Weight: 123.7 kg Last Vital Signs Temp 36.1 C L 03/30/23 14:55 Pulse 60 03/30/23 14:55 Resp 18 03/30/23 14:55 BP 133/74 03/30/23 14:55 Pulse Ox 97 03/30/23 14:55 O2 Del Method Room Air 03/30/23 14:55 Allergies Allergy/AdvReac Type Severity Reaction Status Date / Time Penicillins Allergy Unknown Hives Verified 04/28/23 07:52 lisinopril Allergy Cough Verified 04/28/23 07:52 Home Medications Medication Instructions Recorded Confirmed Type esomeprazole magnesium 40 mg 40 mg PO DAILY 08/15/20 04/28/23 History capsule,delayed release (Nexium) vitamins A,C,A-miso-tpaamq 2,148 2 tablet PO BID 03/05/22 04/28/23 History mcg-113 mg-45 mg-17.4 mg tablet hydrochlorothiazide 25 mg tablet See Rx Instructions .Route 12/27/22 04/28/23 Rx .COMPLEX #90 tabs simvastatin 10 mg tablet 10 mg PO DAILY #90 tabs 02/22/23 04/28/23 Rx losartan 100 mg tablet 100 mg PO DAILY #90 tabs 03/07/23 04/28/23 Rx diphenhydramine HCl 25 mg capsule 25 mg PO HS PRN Insomnia 03/30/23 04/28/23 History (Benadryl) ibuprofen 400 mg tablet 400 mg PO Q6H PRN Pain 03/30/23 04/28/23 History omega-3 fatty acids 1,000 mg PO DAILY 03/30/23 04/28/23 History aspirin 81 mg tablet,delayed 81 mg PO BID 14 days #28 tabs 04/28/23 Rx release oxycodone-acetaminophen 5 mg-325 1 - 2 tablet PO Q4-6H PRN pain #30 04/28/23 Rx mg tablet tabs Patient hx anesthesia problems: none Family hx anesthesia problems: none Results Review: All pre-operative results and documents have been reviewed as part of the pre-operative evaluation. [facility] Past Medical History Medical History Prostate cancer Radiculopathy due to lumbar intervertebral disc disorder Trigger finger, left ring finger Trigger finger, right ring finger Surgical History Surgical History History of knee replacement (~03/2018) right knee History of knee replacement (~03/2019) left Presence of right artificial knee joint Family History Family History Father Family history of cardiovascular disease Family history of malignant neoplasm Family history of lymphoma Sibling Family history of cardiovascular disease Mother Family history of Alzheimer's disease Social History Social History Smoking status: Never smoker Second hand tobacco smoke exposure: Yes Alcohol intake: current Drinks per week: 20 Alcohol use details: BEER Substance use: never Substance use type: does not use Lack of Transportation: No Lack of Food: Never True Current Housing: I Have Housing Concerned About Future Housing: No Difficulty Paying Gas/Electric Bills: No Difficulty Paying for Meds: No Currently Unemployed: No Education: Master's Degree or Higher Difficulty w/ Childcare or Family Care: No Living arrangements: with family Gender identity (if verbalized by the patient): Male Spiritual care concerns: No Anes - Eval Final PreProcedure Day of Procedure 04/28/23 08:07 Patient weight: obese Heart: regular rate and rhythm Lungs: clear to auscultation Airway: Mallampati scale class II Neurological: alert and oriented Last oral intake: >/= 8 hours ASA classification: III Emergent: no Anesthetic plan: proceed Anesthesia type and monitoring: general ETT and standard monitoring Results Review: All pre-operative results and documents have been reviewed as part of the pre-operative evaluati
[2023-04-28] MEDS: TRANEXAMIC ACID 1,000MG/ISO100 1,000 MG/100 ML BAG 200 MG IVPB (08:14)
[2023-04-28] MEDS: ceFAZolin 3 GM/D5W 100 ML 100 ML IVPB (08:30)
[2023-04-28] MEDS: VANCOMYCIN HCL 1,000 MG VIAL 1000 MG TOPICAL (09:32)
[2023-04-28] MEDS: LACTATED RINGERS 1,000 ML 30 ML IV CONT ×2 (11:15)
[2023-04-28] MEDS: fentaNYL CITRATE INJ (*CRX) 100 MCG/2 ML VIAL 25 MCG IV PUSH ×4 (11:28→12:20)
[2023-04-28] MEDS: HYDROmorphone HCL INJ (*CRX) 1 MG/ML SYR IV PUSH (11:40)
--- NOTE | 2023-04-28 11:41 | WPDANESPNB ---
Anes - Peripheral Nerve Block Date/Time: 04/28/23 11:41 I have discussed with the patient/family/POA the placement of a peripheral nerve block for post-operative pain management, including associated risks, benefits, complications, and side effects. Alternative methods of post-operative analgesia were detailed. Questions were solicited and answers provided to the satisfaction of the patient/family/POA. Time-Out: A pre-procedural Time-Out was completed immediately before starting the procedure and confirmed: Patient Identification, Site, Procedure, Patient Position and the Availability of Requisite Equipment. Clinical Indications: Acute post-operative pain management requested by the operative surgeon. Nerve Block Insertion Note Anes-nerve block: interscalene left Patient position: supine Skin prep: chlorhexidine Needle: 22 gauge, stimulating, insulated echogenic needle. Needle length: 50 mm Technique: nerve stimulation lost at (mA) and ultrasound Technique comment: done in PACU Injectate: bupivacaine 0.5% with epi 5 mcg/ml (20ml no epi) Observations: tolerated well Complications: none Procedure start time:: 1153 Procedure end time:: 1199
--- NOTE | 2023-04-28 13:02 | W.PM.PROC2 ---
Procedure Note - Detailed Date of Procedure 04/28/23 Pre-op Diagnosis glenohumeral joint arthritis left shoulder Post-op Diagnosis Same Procedure Performed Reverse total shoulder arthroplasty, left. Surgeon Gavino Leigh MD Director [employer] Jacinta Karimi PA-C Anesthesia General and Regional (Interscalene block.) Findings Excellent bone quality. Significant contracture. Large glenosphere fit very well, according to 3 dimensional preoperative templating. Description of Procedure The patient was given an interscalene block in the preoperative area. Preoperative antibiotics were given. The patient was transferred to the operating room and a general anesthetic was administered. The beach chair position was used at 45 degrees. All bony prominences were padded. The head was carefully stabilized on the [facility] buyer tobacco head. A sterile prep and drape was performed in the usual manner with ChloraPrep. A longitudinal incision was created at the anterior shoulder just lateral to the deltopectoral interval. Hydrogen peroxide was placed on the incision and then rinsed after one minute. Careful dissection was performed to expose the interval and protect the cephalic vein. The vein was retracted medially. The upper border of the pectoralis was released. Anterior circumflex vessel branches were suture ligated. The biceps was tenodesed. A subscapularis tenotomy was performed. The inferior capsule was released, exposing the humeral head. Osteophytes were removed. Care was taken to stay on bone to protect the axillary nerve. The anatomic head cut was taken with the oscillating saw. The guide pin was placed, central drilling performed, and the broach trial inserted. The neck anteversion and inclination were carefully assessed. The cut protector was placed, and attention was turned to the glenoid. Retractors were placed. Releases were carried out for exposure. The subscapularis was mobilized, the inferior capsule and long head of triceps released, and the superior and middle glenohumeral ligaments released as well. Labral tissue was resected as needed. The sizing template was used to assess the baseplate position low on the glenoid. A guide pin was placed. Minimal reaming was used to accomplish a flat surface without violating the subchondral bone. Version was corrected according to preoperative templating. The boss was drilled, and the real component was impacted into position. Supplemental locking screws were placed centrally, superiorly, and inferiorly. The glenosphere was impacted into the taper. The proximal humerus was reamed for the inset component. The humeral components were trialed. The real humeral stem, tray, and insert were impacted into position. The shoulder was copiously irrigated periodically with pulsatile lavage. The shoulder was reduced and stability confirmed. 1 gram of Vancomycin powder was placed in the joint. The biceps tenodesis was incorporated with the pectoralis tendon repair. The deltopectoral space was reapproximated with number 1 Vicryl. The remaining tissue was closed with 0 Quill and 2-0 Quill running suture and steri-strips. A sterile silver occlusive dressing and shoulder immobilizer were placed. The patient was transferred to the recovery room. Physician health education assistant, Jacinta Karimi PA-C, required for surgery; including patient positioning, draping, tissue retraction, maintaining instrument position, wound closure, and dressing placement. Implants Shoulder Innovations reverse TSA size 0 stem. +0 polyethylene insert. Standard baseplate. 39 + 6 mm glenosphere. Estimated Blood Loss -200.0 Drains No Pathology None sent Complications No immediate complications Condition Stable Disposition PACU [facility] Billing Surgery - Charge Forward: Surgery Billing
--- NOTE | 2023-04-28 13:50 | ADMGEN ---
This patient, Clark Menard, was admitted to [facility] Surg Room 314-02. Patient/family oriented to hospital policies and general routines including ID bracelet, bed and alarms, visiting hours, pain management, procedures, bathroom and other care routines, personal items, smoking policy, room service/diet, and visiting hours. Information on how to activate the Rapid Response Team has been discussed. Patient/Family are encouraged to report perceived risks to care and to ask questions if they do not understand what they are told or what they should do.
--- NOTE | 2023-04-28 13:50 | ADMGEN ---
This patient, Clark Menard, was admitted to [facility] Surg Room 314-02. Patient/family oriented to hospital policies and general routines including ID bracelet, bed and alarms, visiting hours, pain management, procedures, bathroom and other care routines, personal items, smoking policy, room service/diet, and visiting hours. Information on how to activate the Rapid Response Team has been discussed. Patient/Family are encouraged to report perceived risks to care and to ask questions if they do not understand what they are told or what they should do.
[2023-04-28] MEDS: SODIUM CHLORIDE 0.9% IV 1,000 ML 125 ML IV CONT (14:48)
[2023-04-28] MEDS: ceFAZolin 2 GM/D5W 50 ML 2 GM/50 ML BAG IVPB ×2 (14:48→23:41)
[2023-04-28] MEDS: SENNA/DOCUSATE SODIUM TABLET 2 TAB PO (17:41)
[2023-04-28] MEDS: ASPIRIN 81 MG ENTERIC TABLET PO (17:41)
[2023-04-29 00:25] VITALS: BP 158/98; PULSE 85; RESP 18; TEMP 36.1; O2SAT 96
[2023-04-29] MEDS: ceFAZolin 2 GM/D5W 50 ML 2 GM/50 ML BAG IVPB (06:04)
[2023-04-29] MEDS: ACETAMINOPHEN 500 MG TABLET 1000 MG PO ×2 (06:05→12:36)
[2023-04-29 06:15] VITALS: BP 147/88; PULSE 74; RESP 18; TEMP 35.9; O2SAT 94
[2023-04-29 07:23] LABS: Basophils Percent Auto 0.5 % (0.2-1.2); Eosinophils Percent Auto 0.5 % (0-4.4); Hematocrit 42.1 % (42.0-52.0); Hemoglobin 12.2 g/dL (14.0-18.0); Immature Granulocyte Absolute 0.02 K/mm3 (0.00-0.031); Immature Granulocyte Percent A 0.2 % (0-0.5); Lymphocytes Absolute Auto 1.18 K/mm3 (0.9-3.2); Lymphocytes Percent Auto 13.6 % (18.3-44.2); Mean Corpuscular Volume 107.1 fl (80-100); Mean Platelet Volume 9.1 fl (7.4-10.4); Monocytes Absolute Auto 1.4 K/mm3 (0.1-0.6); Monocytes Percent Auto 15.5 % (2.6-8.5); Neutrophils Absolute Auto 6.1 K/mm3 (1.3-6.7); Neutrophils Percent Auto 69.7 % (45.5-73.1); Platelet Count Result 128 k/mm3 (150-375); Red Blood Count 3.93 M/mm3 (4.6-6.20); Red Cell Distribution Width 13.2 % (11.5-14.5); White Blood Count 8.7 K/mm3 (4.5-10.0)
[2023-04-29 07:37] LABS: Anion Gap 8 mmol/L (8-16); Blood Urea Nitrogen 24 mg/dL (9-20); Carbon Dioxide 23 mmol/L (22-30); Chloride 106 mmol/L (98-107); Estimated CRCL calculation 105 ml/min; Estimated Glomerular Filt Rate > 60; Glucose 124 mg/dL (65-110); Potassium 3.5 mmol/L (3.4-5.0); Sodium 137 mmol/L (137-145)
[2023-04-29 08:00] VITALS: BP 133/68; PULSE 65; RESP 16; TEMP 35.7; O2SAT 98
--- NOTE | 2023-04-29 08:01 | PM.DS ---
DS: Admitting Diagnosis Discharge Date 04/29/23 Admitting Diagnosis Massive rotator cuff tear. DS: Discharge Diagnosis Discharge Diagnosis (1) Status post reverse total arthroplasty of left shoulder: Code(s): Z96.612 - Presence of left artificial shoulder joint Status: Acute Assessment and Plan: ?Postop day 1: Left reverse total shoulder arthroplasty. Patient tolerated procedure well. No complications. Pain manageable with pain medication. No numbness or tingling. We had a lengthy discussion regarding postoperative wound care, limitations, expectations, and exercises. Patient shows good understanding. He has had initial physical therapy and is tolerating it well. DVT prophylaxis: 81 mg baby aspirin b.i.d. for 14 days. Pain medication: Percocet. Patient has followup appointment with Dr. Leigh in 3 weeks. DS: Summary Hospital Course Hospital Course: Patient has had initial PT/OT and is tolerating it well. Status at Discharge Functional status at discharge: independent ambulation Overall status at discharge: patient is progressing back to baseline Time Spent with Patient Time attestation: Total time spent providing and/or coordinating discharge services: Exam Narrative: Overweight 78 y/o male. Resting comfortably in bed. Wearing sling. Dressing dry and intact with no drainage. Moderate swelling. Moderate ecchymosis. No erythema. No hematoma. Range of motion limited due to pain. Calf nontender. Neurologic status intact. No varicosities. Distal pulses palpable. DS: Data Data Completed and Pending Labs on day of discharge: Labs from last 24 hours 04/29/23 04/28/23 06:50 08:54 WBC Pending RBC Pending Hgb Pending Hct Pending MCV Pending MCH Pending MCHC Pending RDW Pending Plt Count Pending MPV Pending Immature Gran % (Auto) Pending Neut % (Auto) Pending Lymph % (Auto) Pending [place] % (Auto) Pending Eos % (Auto) Pending Baso % (Auto) Pending Lymph # (Auto) Pending [place] # (Auto) Pending Eos # (Auto) Pending Baso # (Auto) Pending Abs Immat Gran (auto) Pending Absolute Neuts (auto) Pending Absolute Nucleated RBC Pending Nucleated RBC % Pending Sodium 137 Potassium 3.5 Chloride 106 Carbon Dioxide 23 Anion Gap 8 BUN 24 H Creatinine 0.70 Estim Creat Clear Calc 105 Estimated GFR > 60 Glucose 124 H Calcium 8.0 L Blood Type O Positive Antibody Screen Negative Discharge Plan Discharge Patient Disposition: Home, Self-Care Discharge Instructions: See green instruction sheets Stand Alone Forms: General Discharge Instructions Follow-up/Referrals: Jacinta Karimi PA [Physician Shank Burnisher] - Discharge Medications: New aspirin 81 mg tablet,delayed release (DR/EC) 81 mg PO BID 14 Days Qty: 28 0RF oxycodone-acetaminophen 5-325 mg tablet 1 - 2 tablet PO Q4-6H MDD 6 PRN (Reason: pain) Qty: 30 0RF Continued omega-3 fatty acids Capsule 1,000 mg PO DAILY diphenhydramine HCl [Benadryl] 25 mg Capsule 25 mg PO HS PRN (Reason: Insomnia) ibuprofen 400 mg Tablet 400 mg PO Q6H PRN (Reason: Pain) esomeprazole magnesium [Nexium] 40 mg Capsule,Delayed Release(Dr/Ec) 40 mg PO DAILY vitamins A,C,H-lorr-rimldd 2,148 mcg-113 mg-45 mg-17.4mg Tablet 2 tablet PO BID Rx Instructions: administer with AM and PM meals hydrochlorothiazide 25 mg tablet See Rx Instructions .ROUTE .COMPLEX Qty: 90 1RF Dose Instruction: TAKE 1 TABLET BY MOUTH EVERY DAY Rx Instructions: TAKE 1 TABLET BY MOUTH EVERY DAY simvastatin 10 mg tablet 10 mg PO DAILY Qty: 90 1RF Rx Instructions: TAKE ONE TABLET BY MOUTH AT BEDTIME losartan 100 mg tablet 100 mg PO DAILY Qty: 90 1RF
[2023-04-29] MEDS: polyethylene glycoL 3350 17 GM POWD.PACK PO (08:15)
[2023-04-29] MEDS: ASPIRIN 81 MG ENTERIC TABLET PO (08:16)
[2023-04-29] MEDS: SENNA/DOCUSATE SODIUM TABLET 2 TAB PO (08:16)
[2023-04-29] MEDS: LOSARTAN POTASSIUM 100 MG TABLET PO (08:16)
[2023-04-29] MEDS: oxyCODONE HCL (*CRX) 5 MG TAB IR PO ×2 (08:16→12:36)
[2023-04-29] MEDS: PANTOPRAZOLE 40 MG TABLET PO (08:16)
[2023-04-29] MEDS: SIMVASTATIN 10 MG TABLET PO (08:17)
[2023-04-29] MEDS: hydroCHLOROthiazide 25 MG TABLET PO (08:17)
[2023-04-29] MEDS: IBUPROFEN 400 MG TABLET PO (08:17)
[2023-04-29] MEDS: CYCLOBENZAPRINE HCL 10 MG TABLET PO (08:17)
[2023-04-29 08:34] LABS: Hypochromasia 1+ (NORMAL); Macrocytosis 1+ (NORMAL); Platelet Estimate Decreased (Adequate); Schistocytes None Seen (NORMAL)
--- NOTE | 2023-04-29 10:04 | WPDANESPN ---
Anes - Prog Note Post-Op Date/Time: 04/29/23 10:04 Cardiovascular status: normal Respiratory status: normal Airway patency: baseline Mental status: baseline Post-Op hydration status: normal Vital Signs: Last Vital Signs Temp 35.7 C L 04/29/23 08:00 Pulse 65 04/29/23 08:00 Resp 16 04/29/23 08:00 BP 133/68 04/29/23 08:00 Pulse Ox 98 04/29/23 08:00 O2 Del Method Room Air 04/28/23 21:51 O2 Flow Rate 2 04/28/23 13:30 Pain Score (VAS): 07/06 I/O: Intake & Output 04/28/23 04/29/23 04/29/23 23:59 07:59 15:59 Intake Total 240 250 716 Balance 240 250 716 Laboratory Tests 04/29/23 06:50 04/29/23 06:50 04/29/23 06:50 WBC 8.7 RBC 3.93 L Hgb 12.2 L Hct 42.1 MCV 107.1 H MCH 31.0 MCHC 29.0 L RDW 13.2 Plt Count 128 L MPV 9.1 Immature Gran % (Auto) 0.2 Neut % (Auto) 69.7 Lymph % (Auto) 13.6 L [place] % (Auto) 15.5 H Eos % (Auto) 0.5 Baso % (Auto) 0.5 Lymph # (Auto) 1.18 [place] # (Auto) 1.4 H Eos # (Auto) 0.0 Baso # (Auto) 0.0 Abs Immat Gran (auto) 0.02 Absolute Neuts (auto) 6.1 Absolute Nucleated RBC 0.0 Nucleated RBC % 0.0 Platelet Estimate Decreased Hypochromasia 1+ Macrocytosis 1+ Schistocytes None seen Sodium 137 Potassium 3.5 Chloride 106 Carbon Dioxide 23 Anion Gap 8 BUN 24 H Creatinine 0.70 Estim Creat Clear Calc 105 Estimated GFR > 60 Glucose 124 H Calcium 8.0 L Post-procedural complaints: none Patient Feedback: Patient satisfied with anesthetic care.
[2023-04-29 12:00] VITALS: BP 141/72; PULSE 60; RESP 16; TEMP 36.3; O2SAT 97
== END 2023-04-29 14:10 | disposition home or self-care (01) ==
LOC: ANHSURGERY 07:19 → ANH3MEDSUR 13:47
PROVIDERS: Physician Assistant Surgical; PCP Family Medicine; Visit Provider Orthopaedic Surgery
PROC: (CPT 23472; principal; 2023-04-28 09:00)
DX: M19.012 Primary osteoarthritis, left shoulder (principal); G89.18 Other acute postprocedural pain; Z85.46 Personal history of malignant neoplasm of prostate; Z79.82 Long term (current) use of aspirin; E66.9 Obesity, unspecified; Z68.35 Body mass index [BMI] 35.0-35.9, adult
CPT/HCPCS: 23472; 64415; 36415; 73030; 80048; 85025; 86850; 86900; 86901; 97110; 97116; 97161; 97165; 97535; A4565; A9270; C1776; J0171; J0690; J1170; J1885; J2270; J2795; J3010; J3370; J7030; J7120

== ENCOUNTER 2023-06-01 13:41 | Outpatient (CLI) | payer MEDICARE, SELFPAY ==
--- NOTE | ~2023-06-01 | CT_ITS ---
Noncontrast CT scan of the right shoulder CLINICAL HISTORY: Preoperative planning TECHNIQUE: Axial noncontrast imaging of the right shoulder was performed. Sagittal and coronal reform atted images were constructed. Dose reduction technique was used on this scan by utilizing automated exposure control and iterative reconstruction technique. The dose-length product (DLP) was 548.97 mGy -cm. Findings: No acute fracture or dislocation seen. There is severe glenohumeral joint osteoarthritis. T here is joint space narrowing diffusely, with mild reactive sclerosis, and large inferomedial humeral head osteophyte. There is bony productive change from the margins of the glenoid. There are multiple intra-articular loose bodies, including in the subscapularis recess as well as superior to the humer al head. There is moderate to advanced AC joint degenerative change, with joint space narrowing and b stephenie peripheral change present. No other gross soft tissue abnormality seen. IMPRESSION: Severe glenohumeral joint osteoarthritis, as detailed above, with associated multiple intra-articular loose bodies. Moderate to advanced AC joint degenerative change. Reviewed, dictated and finalized at location M. TECHNICIAN IMPRESSION: Severe glenohumeral joint osteoarthritis, as detailed above, with associated mu ltiple intra-articular loose bodies. Moderate to advanced AC joint degenerative change.
== END 2023-06-01 13:42 | disposition home or self-care (01) ==
PROVIDERS: PCP Family Medicine; Visit Provider Orthopaedic Surgery
DX: M19.011 Primary osteoarthritis, right shoulder (principal)
CPT/HCPCS: 73200

== ENCOUNTER 2023-06-14 10:18 | Outpatient (CLI) | payer MEDICARE, SELFPAY ==
--- NOTE | ~2023-06-14 | XR_ITS ---
Right Shoulder Technique: AP and scapular Y views were obtained. Clinical History: Pain Findings: No fracture or dislocation is seen. There is severe osteoarthritis of the right glenohumera l joint with large inferomedial humeral head osteophyte, and large intra-articular loose bodies prese nt. There is mild AC joint degenerative change. Soft tissues are unremarkable. Impression: Severe glenohumeral joint osteoarthritis, with multiple intra-articular loose bodies. Reviewed, dictated and finalized at location M. IAL SKILLS OFFICER Impression: Severe glenohumeral joint osteoarthritis, with multiple intra-articular loose b odies.
--- NOTE | ~2023-06-14 | XR_ITS ---
Left Shoulder Technique: AP and scapular Y, and axillary views were obtained. Clinical History: Pain Findings: No fracture or dislocation is seen. Left shoulder arthroplasty is in place, without evidenc e of hardware complication.. Soft tissues are unremarkable. Impression: No acute abnormality. Left shoulder arthroplasty. Reviewed, dictated and finalized at location . CISE SCIENTIST Impression: No acute abnormality. Left shoulder arthroplasty.
== END 2023-06-14 10:19 | disposition home or self-care (01) ==
PROVIDERS: PCP Family Medicine; Visit Provider Orthopaedic Surgery
DX: M19.011 Primary osteoarthritis, right shoulder (principal); Z96.612 Presence of left artificial shoulder joint
CPT/HCPCS: 73030

== ENCOUNTER 2023-08-10 07:58 | Outpatient (CLI) | payer MEDICARE, SELFPAY ==
[2023-08-10 08:51] LABS: Basophils Absolute Auto 0.1 K/mm3 (0.0-0.1); Basophils Percent Auto 1.1 % (0.2-1.2); Eosinophils Absolute Auto 0.1 K/mm3 (0-0.3); Eosinophils Percent Auto 1.6 % (0-4.4); Hematocrit 42.8 % (42.0-52.0); Hemoglobin 14.2 g/dL (14.0-18.0); Immature Granulocyte Absolute 0.01 K/mm3 (0.00-0.031); Immature Granulocyte Percent A 0.2 % (0-0.5); Lymphocytes Absolute Auto 1.29 K/mm3 (0.9-3.2); Lymphocytes Percent Auto 29.1 % (18.3-44.2); Mean Corpuscular HGB Conc 33.2 g/dl (32-36); Mean Corpuscular Hemoglobin 30.5 pg (26-34); Mean Platelet Volume 9.2 fl (7.4-10.4); Monocytes Absolute Auto 0.7 K/mm3 (0.1-0.6); Monocytes Percent Auto 15.8 % (2.6-8.5); Neutrophils Absolute Auto 2.3 K/mm3 (1.3-6.7); Neutrophils Percent Auto 52.2 % (45.5-73.1); Platelet Count Result 155 k/mm3 (150-375); Red Blood Count 4.65 M/mm3 (4.6-6.20); Red Cell Distribution Width 12.9 % (11.5-14.5); White Blood Count 4.4 K/mm3 (4.5-10.0)
[2023-08-10 09:00] LABS: Anion Gap 4 mmol/L (8-16); Blood Urea Nitrogen 22 mg/dL (9-20); Calcium 9.2 mg/dL (8.4-10.2); Carbon Dioxide 30 mmol/L (22-30); Chloride 103 mmol/L (98-107); Estimated Glomerular Filt Rate > 60; Glucose 99 mg/dL (65-110); Potassium 3.9 mmol/L (3.4-5.0); Sodium 137 mmol/L (137-145)
[2023-08-10 10:29] LABS: MRSA (PCR) NOT DETECTED (NOT DETECTE)
== END 2023-08-10 07:59 | disposition home or self-care (01) ==
PROVIDERS: Anesthesiology; PCP Family Medicine; Visit Provider Orthopaedic Surgery
DX: M19.011 Primary osteoarthritis, right shoulder (principal); I10 Essential (primary) hypertension; Z01.818 Encounter for other preprocedural examination
CPT/HCPCS: 36415; 80048; 85025; 86850; 86900; 86901; 87641

== ENCOUNTER 2023-08-16 00:51 | Day surgery (SDC) | payer MEDICARE, SELFPAY ==
--- NOTE | 2023-08-01 15:19 | PC.NURSE ---
Report to the Outpatient Waiting Room, entrance under the green pavilion located off [facility], at time __0600 on date _08/16/23 . Planned Procedure Time: _0730 . Time changes happen often and if your time is changed the preop area will call you the afternoon before. - You and your visitor will be asked to self-screen and do not enter if you have any COVID symptoms. - A mask is optional within the hospital at this time. Patients may have clear liquids (water, carbonated beverages, clear teas, apple juice) until 3 hours prior to surgery(4:30 AM) with a maximum of 20 ounces. - No food from midnight until time of surgery - Infants may have breast milk until 4 hours before surgery, infant formula 6 hours prior to surgery. - Children will be allowed to drink immediately following surgery. If applicable, please bring a bottle or sippy cup to assist with drinking. Juice, water, soda, and popsicles are readily available. For infants on formula, please bring formula the day of surgery. Pacifiers are allowed. Take the following medications with a SIP of water the morning of surgery: ___NONE DO NOT STOP ANY OF YOUR OTHER PRESCRIPTION MEDICATIONS PRIOR TO SURGERY ?EXCEPT THE FOLLOWING Medications to discontinue per physician _HOLD IBUPROFEN 7 DAYS PRE OP PER DR KONG.LAST DOSE 08/08/23. HOLD ALL VITAMINS AND SUPPLEMENTS 3 DAYS PRE OP.LAST DOSE 08/12/23 MAY TAKE TYLENOL IF NEEDED FOR PAIN Please no make-up, nail estonian, hairspray, perfume, deodorant, or body powder the day of surgery. No jewelry (including any body piercings) or valuables the day of surgery, leave them at home. Please take a shower or bath the night before, or the morning of, surgery with an antibacterial soap. Wear comfortable, loose fitting clothing. Children are encouraged to wear pajamas. - Jewelry must be removed prior to entering the operating room. Rings and piercings that are not removed may be cut off. - The hospital will not accept responsibility for valuables. - Please leave all valuables, including medications, at home the day of surgery. If you are going home after surgery, a licensed helper driver must drive you home. - NO public transportation without another adult if you receive anesthesia. - We recommend that an adult stay with you for 24 hours following discharge. - We also recommend that you do not drive, make important decision, drink alcoholic beverages, or take any drugs that were not prescribed by your health care provider for at least 24 hours after your discharge time. For Pediatric surgeries, we recommend two adults accompany the child home. Follow any additional instructions given to you from your surgeon. If you or anyone in your household have experienced Covid symptoms in the past week, please notify your surgeon or the nurse liaison at the phone number below for possible testing. Telephone instructions given to ___PATIENT and asked if any additional questions and then verbalized understanding. Patient advised to call surgeon office or pre surgery nurse liaison [phone] if any additional questions.
[2023-08-01 15:30] VITALS: BMI 35.6
[2023-08-16] VITALS (18 sets, daily range): BP systolic 115–162; BP diastolic 53–87; PULSE 59–82; RESP 12–18; TEMP 36.2–36.8; O2SAT 92–99
--- NOTE | ~2023-08-16 | XR_ITS ---
EXAMINATION: XR shoulder RT min 2V DATE: 08/16/2023 10:21 INDICATION: Postoperative evaluation following right reverse total shoulder arthroplasty. TECHNIQUE: Anteroposterior and lateral views of the right shoulder were obtained. COMPARISON: 06/14/2023 FINDINGS: Interval placement of a reverse right total shoulder arthroplasty which appears well seated in near-a natomic alignment. No fracture. Moderate osteoarthritis at the right acromioclavicular joint with mod erate-sized inferiorly directed osteophytes. Expected soft tissue gas at the operative bed. Visualize d portion of the right lung is clear. IMPRESSION: 1. Reverse right total shoulder arthroplasty, negative for postoperative purposes. Reviewed, dictated and finalized at location A. EOTYPER IMPRESSION: 1. Reverse right total shoulder arthroplasty, negative for postoperative purpos es.
[2023-08-16] MEDS: ACETAMINOPHEN 500 MG TABLET 1000 MG PO ×3 (06:40→17:47)
[2023-08-16] MEDS: LACTATED RINGERS 1,000 ML 30 ML IV CONT ×2 (06:49→09:51)
[2023-08-16] MEDS: TRANEXAMIC ACID 1,000MG/ISO100 1,000 MG/100 ML BAG 200 MG IVPB (07:06)
--- NOTE | 2023-08-16 07:10 | WPDHPUPDATE1 ---
History and Physical Update Update Date/Time: 08/16/23 07:10 History and Physical has been reviewed, including an updated exam of the patient. There are NO changes in the patient's condition. Risks, benefits, and alternatives have been discussed and questions answered. Patient agrees to proceed with procedure.
--- NOTE | 2023-08-16 07:18 | WPDANESEPPF ---
Anes - Initial Pre Proc Eval Procedure: Operation Date: 08/16/23 07:30 Proposed Procedures p Right Reverse Total Shoulder Arthroplasty - Gavino Leigh MD Date/Time: 08/16/23 07:18 Surgeon: Gavino Leigh MD Pre Op Diagnosis: Prim OA Right Shoulder Patient Data Age: 78 Gender: M Height: 1.85 m Weight: 121.6 kg Last Vital Signs Temp 36.2 C L 08/16/23 06:58 Pulse 59 L 08/16/23 06:58 Resp 16 08/16/23 06:58 BP 129/69 08/16/23 06:58 Pulse Ox 95 08/16/23 06:58 O2 Del Method Room Air 08/16/23 06:58 Allergies Allergy/AdvReac Type Severity Reaction Status Date / Time Penicillins Allergy Unknown Hives Verified 08/16/23 06:30 lisinopril Allergy Cough Verified 08/16/23 06:30 Home Medications Medication Instructions Recorded Confirmed Type esomeprazole magnesium 40 mg 40 mg PO DAILY 08/15/20 08/16/23 History capsule,delayed release (Nexium) vitamins A,C,M-bvtf-mrzciy 2,148 1 tablet PO BID 03/05/22 08/16/23 History mcg-113 mg-45 mg-17.4 mg tablet simvastatin 10 mg tablet 10 mg PO DAILY #90 tabs 02/22/23 08/16/23 Rx losartan 100 mg tablet 100 mg PO DAILY #90 tabs 03/07/23 08/16/23 Rx ibuprofen 400 mg tablet 400 mg PO Q6H PRN Pain 03/30/23 08/16/23 History omega-3 fatty acids 1,000 mg PO DAILY 03/30/23 08/16/23 History hydrochlorothiazide 25 mg tablet See Rx Instructions .Route 07/05/23 08/16/23 Rx .COMPLEX #90 tabs melatonin 10 mg capsule 10 mg PO HS PRN Insomnia 08/01/23 08/16/23 History Patient hx anesthesia problems: none Family hx anesthesia problems: none Results Review: All pre-operative results and documents have been reviewed as part of the pre-operative evaluation. 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 Do You Feel Safe in your Home?: Yes Lack of Transportation: No Lack of Food: Never True Current Housing: I Have Housing Concerned About Future Housing: No Difficulty Paying Gas/Electric Bills: No Difficulty Paying for Meds: No Currently Unemployed: No Education: Master's Degree or Higher Difficulty w/ Childcare or Family Care: No Living arrangements: with family Gender identity (if verbalized by the patient): Male Spiritual care concerns: No Anes - Eval Final PreProcedure Day of Procedure 08/16/23 07:18 Patient weight: obese Heart: regular rate and rhythm Lungs: clear to auscultation Airway: Mallampati scale class II Neurological: alert and oriented Last oral intake: >/= 8 hours ASA classification: III Emergent: no Anesthetic plan: proceed Anesthesia type and monitoring: general ETT and standard monitoring Results Review: All pre-operative results and documents have been reviewed as part of the pre-operative evaluation. Informed Consent: The patient's anesthetic plan and its attendant risks
[2023-08-16] MEDS: ceFAZolin 3 GM/D5W 100 ML 100 ML IVPB (07:24)
[2023-08-16] MEDS: SODIUM CHLORIDE 0.9% IV 37.7 ML, MORPHINE SULFATE INJ (*CRX) 2 MG, ROPivacaine HCL 1% 2... INFILTRATE (08:11)
[2023-08-16] MEDS: VANCOMYCIN HCL 1,000 MG VIAL 1000 MG TOPICAL (08:12)
--- NOTE | 2023-08-16 10:01 | W.PM.PROC2 ---
Procedure Note - Detailed Date of Procedure 08/16/23 Pre-op Diagnosis Prim OA Right Shoulder Post-op Diagnosis Same Procedure Performed Reverse total shoulder arthroplasty, right. Surgeon Gavino Leigh MD Research Software Engineer Jacinta Karimi PA-C Anesthesia General Findings Extensive osteophytes and loose bodies. Good bone. Very large stature. Description of Procedure The patient was given an interscalene block in the preoperative area. Preoperative antibiotics were given. The patient was transferred to the operating room and a general anesthetic was administered. The beach chair position was used at 45 degrees. All bony prominences were padded. The head was carefully stabilized on the [facility] filter tank tender helper head. A sterile prep and drape was performed in the usual manner with ChloraPrep. A longitudinal incision was created at the anterior shoulder just lateral to the deltopectoral interval. Hydrogen peroxide was placed on the incision and then rinsed after one minute. Careful dissection was performed to expose the interval and protect the cephalic vein. The vein was retracted medially. The upper border of the pectoralis was released. Anterior circumflex vessel branches were suture ligated. The biceps was tenodesed. A subscapularis tenotomy was performed. The inferior capsule was released, exposing the humeral head. Osteophytes were removed. Care was taken to stay on bone to protect the axillary nerve. The anatomic head cut was taken with the oscillating saw. The guide pin was placed, central drilling performed, and the broach trial inserted. The neck anteversion and inclination were carefully assessed. The cut protector was placed, and attention was turned to the glenoid. Retractors were placed. Releases were carried out for exposure. The subscapularis was mobilized, the inferior capsule and long head of triceps released, and the superior and middle glenohumeral ligaments released as well. Labral tissue was resected as needed. The sizing template was used to assess the baseplate position low on the glenoid. A guide pin was placed. Minimal reaming was used to accomplish a flat surface without violating the subchondral bone. Version was corrected according to preoperative templating. Slight, 5-10 degree inferior tilt added.The boss was drilled, and the real component was impacted into position. Supplemental locking screws were placed centrally, superiorly, and inferiorly. The glenosphere was impacted into the taper. The proximal humerus was reamed for the inset component. The humeral components were trialed. The real humeral stem, tray, and insert were impacted into position. The shoulder was copiously irrigated periodically with pulsatile lavage. The shoulder was reduced and stability confirmed. 1 gram of Vancomycin powder was placed in the joint. The biceps tenodesis was incorporated with the pectoralis tendon repair. The deltopectoral space was reapproximated with number 1 Vicryl. The remaining tissue was closed with 3-0 Quill and 4-0 Quill running suture and steri-strips. A sterile silver occlusive dressing and shoulder immobilizer were placed. The patient was transferred to the recovery room. Physician lead recreation assistant, Jacinta Karimi PA-C, required for surgery; including patient positioning, draping, tissue retraction, maintaining instrument position, wound closure, and dressing placement. Implants Shoulder Innovations reverse TSA size 0 stem. +0 polyethylene insert. Standard baseplate. 39 + 6 mm glenosphere. Estimated Blood Loss 200 Drains No Pathology None sent Complications No immediate complications Condition Stable Disposition PACU [facility] Billing Surgery - Charge Forward: Surgery Billing
[2023-08-16] MEDS: fentaNYL CITRATE INJ (*CRX) 100 MCG/2 ML VIAL 25 MCG IV PUSH ×5 (10:07→11:16)
--- NOTE | 2023-08-16 12:10 | ADMGEN ---
This patient, Clark Menard, was admitted to Medical Room 261-01. Patient/family oriented to hospital policies and general routines including ID bracelet, bed and alarms, visiting hours, pain management, procedures, bathroom and other care routines, personal items, smoking policy, room service/diet, and visiting hours. Information on how to activate the Rapid Response Team has been discussed. Patient/Family are encouraged to report perceived risks to care and to ask questions if they do not understand what they are told or what they should do.
--- NOTE | 2023-08-16 12:12 | WPDANESPNB ---
Anes - Peripheral Nerve Block Date/Time: 08/16/23 12:12 I have discussed with the patient/family/POA the placement of a peripheral nerve block for post-operative pain management, including associated risks, benefits, complications, and side effects. Alternative methods of post-operative analgesia were detailed. Questions were solicited and answers provided to the satisfaction of the patient/family/POA. Time-Out: A pre-procedural Time-Out was completed immediately before starting the procedure and confirmed: Patient Identification, Site, Procedure, Patient Position and the Availability of Requisite Equipment. Clinical Indications: Acute post-operative pain management requested by the operative surgeon. Nerve Block Insertion Note Anes-nerve block: interscalene right Patient position: supine Skin prep: chlorhexidine Needle: 22 gauge, stimulating, insulated echogenic needle. Needle length: 50 mm Technique: nerve stimulation lost at (mA) (0.3) and ultrasound Technique comment: done in PACU no sedation Injectate: bupivacaine 0.5% with epi 5 mcg/ml (30ml no epi) and dexamethasone (mg) (4) Observations: tolerated well Complications: none Procedure start time:: 1128 Procedure end time:: 1134
[2023-08-16] MEDS: hydroCHLOROthiazide 25 MG TABLET PO (12:36)
[2023-08-16] MEDS: PANTOPRAZOLE 40 MG TABLET PO (12:36)
[2023-08-16] MEDS: ceFAZolin 2 GM/D5W 50 ML 2 GM/50 ML BAG IVPB (15:44)
[2023-08-16] MEDS: SENNA/DOCUSATE SODIUM TABLET 2 TAB PO (16:19)
[2023-08-16] MEDS: ASPIRIN 81 MG ENTERIC TABLET PO (16:19)
[2023-08-16] MEDS: SIMVASTATIN 10 MG TABLET PO (21:05)
[2023-08-16] MEDS: MELATONIN 5 MG TABLET 10 MG PO (21:05)
[2023-08-17 00:10] VITALS: BP 131/64; PULSE 70; RESP 14; TEMP 36.6; O2SAT 94
[2023-08-17] MEDS: ACETAMINOPHEN 500 MG TABLET 1000 MG PO ×2 (00:12→05:28)
[2023-08-17] MEDS: ceFAZolin 2 GM/D5W 50 ML 2 GM/50 ML BAG IVPB ×2 (00:12→09:16)
[2023-08-17 05:17] LABS: Basophils Percent Auto 0.3 % (0.2-1.2); Eosinophils Percent Auto 0.3 % (0-4.4); Hematocrit 39.9 % (42.0-52.0); Hemoglobin 12.6 g/dL (14.0-18.0); Immature Granulocyte Absolute 0.04 K/mm3 (0.00-0.031); Immature Granulocyte Percent A 0.4 % (0-0.5); Lymphocytes Absolute Auto 1.41 K/mm3 (0.9-3.2); Lymphocytes Percent Auto 13.6 % (18.3-44.2); Mean Corpuscular HGB Conc 31.6 g/dl (32-36); Mean Corpuscular Hemoglobin 29.9 pg (26-34); Mean Corpuscular Volume 94.8 fl (80-100); Mean Platelet Volume 9.2 fl (7.4-10.4); Monocytes Absolute Auto 1.3 K/mm3 (0.1-0.6); Monocytes Percent Auto 12.1 % (2.6-8.5); Neutrophils Absolute Auto 7.6 K/mm3 (1.3-6.7); Neutrophils Percent Auto 73.3 % (45.5-73.1); Platelet Count Result 149 k/mm3 (150-375); Red Blood Count 4.21 M/mm3 (4.6-6.20); Red Cell Distribution Width 13.2 % (11.5-14.5); White Blood Count 10.3 K/mm3 (4.5-10.0)
[2023-08-17 05:30] LABS: Anion Gap 3 mmol/L (8-16); Blood Urea Nitrogen 25 mg/dL (9-20); Calcium 8.7 mg/dL (8.4-10.2); Carbon Dioxide 32 mmol/L (22-30); Chloride 102 mmol/L (98-107); Estimated CRCL calculation 92 ml/min; Estimated Glomerular Filt Rate > 60; Glucose 122 mg/dL (65-110); Potassium 3.9 mmol/L (3.4-5.0); Sodium 137 mmol/L (137-145)
[2023-08-17 05:33] VITALS: BP 126/65; PULSE 65; RESP 16; TEMP 36.5; O2SAT 95
--- NOTE | 2023-08-17 08:03 | PM.DS ---
DS: Admitting Diagnosis Discharge Date 08/17/23 Admitting Diagnosis glenohumeral joint arthritis DS: Discharge Diagnosis Discharge Diagnosis (1) Status post reverse total arthroplasty of right shoulder: Code(s): Z96.611 - Presence of right artificial shoulder joint Status: Acute Assessment and Plan: Postop day 1: Right reverse total shoulder arthroplasty. Patient tolerated procedure well. No complications. Pain manageable with pain medication. No numbness or tingling. We had a lengthy discussion regarding postoperative wound care, limitations, expectations, and exercises. Patient shows good understanding. He has had initial physical therapy and is tolerating it well. DVT prophylaxis: 81 mg baby aspirin b.i.d. for 14 days. Pain medication: Percocet. Patient has followup appointment with Dr. Leigh in 3 weeks. DS: Summary Hospital Course Hospital Course: Patient tolerated procedure well. He has had initial physical therapy occupational therapy. Status at Discharge Functional status at discharge: independent ambulation Overall status at discharge: patient is progressing back to baseline Time Spent with Patient Time attestation: Total time spent providing and/or coordinating discharge services: Exam Narrative: 78-year-old overweight male. Resting comfortably in chair. Wearing sling. Dressing dry and intact with no drainage. Moderate swelling. Mild ecchymosis. No erythema. No hematoma. Range of motion limited due to pain. Calf nontender. Neurologic status intact. No varicosities. Distal pulses palpable. DS: Data Data Completed and Pending Labs on day of discharge: Labs from last 24 hours 08/17/23 04:38 WBC 10.3 H RBC 4.21 L Hgb 12.6 L Hct 39.9 L MCV 94.8 MCH 29.9 MCHC 31.6 L RDW 13.2 Plt Count 149 L MPV 9.2 Immature Gran % (Auto) 0.4 Neut % (Auto) 73.3 H Lymph % (Auto) 13.6 L [place] % (Auto) 12.1 H Eos % (Auto) 0.3 Baso % (Auto) 0.3 Lymph # (Auto) 1.41 [place] # (Auto) 1.3 H Eos # (Auto) 0.0 Baso # (Auto) 0.0 Abs Immat Gran (auto) 0.04 H Absolute Neuts (auto) 7.6 H Absolute Nucleated RBC 0.0 Nucleated RBC % 0.0 Sodium 137 Potassium 3.9 Chloride 102 Carbon Dioxide 32 H Anion Gap 3 L BUN 25 H Creatinine 0.80 Estim Creat Clear Calc 92 Estimated GFR > 60 Glucose 122 H Calcium 8.7 Discharge Plan Discharge Patient Disposition: Home, Self-Care Discharge Instructions: See green instruction sheets Stand Alone Forms: General Discharge Instructions Follow-up/Referrals: Jacinta Karimi PA [Physician Route Driver] - Discharge Medications: New aspirin 81 mg tablet,delayed release (DR/EC) 81 mg PO BID 14 Days Qty: 28 0RF oxycodone-acetaminophen 5-325 mg tablet 1 - 2 tablet PO Q4-6H MDD 6 PRN (Reason: pain) Qty: 30 0RF Continued omega-3 fatty acids Capsule 1,000 mg PO DAILY ibuprofen 400 mg Tablet 400 mg PO Q6H PRN (Reason: Pain) esomeprazole magnesium [Nexium] 40 mg Capsule,Delayed Release(Dr/Ec) 40 mg PO DAILY vitamins A,C,R-gmmr-wtcqmh 2,148 mcg-113 mg-45 mg-17.4mg Tablet 1 tablet PO BID Rx Instructions: administer with AM and PM meals melatonin 10 mg Capsule 10 mg PO HS PRN (Reason: Insomnia) simvastatin 10 mg tablet 10 mg PO DAILY Qty: 90 1RF Rx Instructions: TAKE ONE TABLET BY MOUTH AT BEDTIME losartan 100 mg tablet 100 mg PO DAILY Qty: 90 1RF hydrochlorothiazide 25 mg tablet See Rx Instructions .ROUTE .COMPLEX Qty: 90 1RF Dose Instruction: TAKE 1 TABLET BY MOUTH EVERY DAY Rx Instructions: TAKE 1 TABLET BY MOUTH EVERY DAY
[2023-08-17 08:49] VITALS: O2SAT 91
[2023-08-17] MEDS: ASPIRIN 81 MG ENTERIC TABLET PO (09:17)
[2023-08-17] MEDS: LOSARTAN POTASSIUM 100 MG TABLET PO (09:17)
[2023-08-17] MEDS: PANTOPRAZOLE 40 MG TABLET PO (09:17)
[2023-08-17] MEDS: SENNA/DOCUSATE SODIUM TABLET 2 TAB PO (09:17)
[2023-08-17] MEDS: hydroCHLOROthiazide 25 MG TABLET PO (09:17)
[2023-08-17] MEDS: polyethylene glycoL 3350 17 GM POWD.PACK PO (09:18)
[2023-08-17 09:40] VITALS: BP 128/62; PULSE 64; RESP 17; TEMP 36.4; O2SAT 96
== END 2023-08-17 11:40 | disposition home or self-care (01) ==
LOC: ANHSURGERY 09:45 → ANH2MED 11:57
PROVIDERS: Physician Assistant Surgical; PCP Family Medicine; Visit Provider Orthopaedic Surgery
PROC: (CPT 23472; principal; 2023-08-16 07:30)
DX: M19.011 Primary osteoarthritis, right shoulder (principal); Z85.46 Personal history of malignant neoplasm of prostate; E66.9 Obesity, unspecified; Z68.35 Body mass index [BMI] 35.0-35.9, adult; G89.18 Other acute postprocedural pain
CPT/HCPCS: 23472; 64415; 36415; 73030; 80048; 85025; 97110; 97161; 97165; 97530; 97535; A4565; A9270; C1776; J0171; J0330; J0690; J1100; J1170; J1885; J2270; J2405; J2704; J2795; J3010; J3370; J7120

== ENCOUNTER 2023-09-01 09:08 | Emergency (ER) | payer MEDICARE, SELFPAY ==
--- NOTE | ~2023-09-01 | XR_ITS ---
EXAMINATION: XR chest 2V DATE: 09/01/2023 09:38 INDICATION: Shortness of breath TECHNIQUE: PA and lateral views of the chest are obtained. COMPARISON: 08/15/2020 FINDINGS: The lungs are free of acute opacities. No pleural effusion or pneumothorax. The cardiomedia stinal silhouette is normal. There are bridging osteophytes at multiple levels in the spine, consiste nt with diffuse idiopathic skeletal hyperostosis (DISH). There are changes of interval bilateral tota l shoulder arthroplasty. IMPRESSION: 1. No acute cardiopulmonary abnormality. Reviewed, dictated and finalized at location L. ENTIONAL MORTGAGE UNDERWRITER
--- NOTE | 2023-09-01 09:14 | ED.URI ---
HPI - URI/Sore Throat General Chief Complaint: Upper Respiratory Infection Stated Complaint: Trouble Breathing/Chest Congestion Time Seen by Provider: 09/01/23 09:12 Source: patient Mode of arrival: ambulatory Limitations: no limitations History of Present Illness HPI Narrative: Patient is a 78-year-old male who presents with sneezing and sore throat since yesterday. Patient states this morning symptoms were worse and have improved over the last 2 hours. Patient reports when he takes a deep breath he feels a sharp stabbing pain to left shoulder blade. Denies any cough, shortness of breath or chest pain. Denies any pain with movement of left arm. Patient still able speak in full sentences and does appear to be in distress. Patient states he is concerned for COVID because last time he had COVID he sneezed a lot. Patient did test for COVID yesterday at home minute was negative. Patient had a right shoulder replaced August 16. Related Data Home Medications Medication Instructions Recorded Confirmed esomeprazole magnesium 40 mg 40 mg PO DAILY 08/15/20 09/01/23 capsule,delayed release (Nexium) vitamins A,C,L-uzwp-wtbcsk 2,148 1 tablet PO BID 03/05/22 09/01/23 mcg-113 mg-45 mg-17.4 mg tablet ibuprofen 400 mg tablet 400 mg PO Q6H PRN Pain 03/30/23 09/01/23 omega-3 fatty acids 1,000 mg PO DAILY 03/30/23 09/01/23 melatonin 10 mg capsule 10 mg PO HS PRN Insomnia 08/01/23 09/01/23 Allergies Allergy/AdvReac Type Severity Reaction Status Date / Time Penicillins Allergy Unknown Hives Verified 09/01/23 09:19 lisinopril Allergy Cough Verified 09/01/23 09:19 Review of Systems Review of Systems: All systems reviewed & are unremarkable except as noted in HPI and below Constitutional: Constitutional: Denies body ache(s), Denies chills, Denies fatigue, Denies fever(s), Denies headache(s), Denies malaise and Denies weakness Eyes: Eyes: Denies blurry vision, Denies itchy eyes and Denies loss of vision ENT: Denies otalgia, Denies headache(s), Reports nasal congestion, Denies sinus pain and Reports sore throat Cardiovascular: Cardiovascular: Denies chest pain, Denies irregular heart rhythm and Denies dyspnea Respiratory: Respiratory: Denies cough and Denies dyspnea Gastrointestinal: Gastrointestinal: Denies abdominal pain, Denies diarrhea, Denies nausea and Denies vomiting Musculoskeletal: Musculoskeletal: Denies back pain, Denies myalgias and Denies arthralgias Integumentary/Breasts: Skin/Breast: Denies pruritus and Denies rash Neurologic: Denies headache(s), Denies loss of vision and Denies weakness Psychiatric: Psychiatric: Reports no additional psychiatric complaints Endocrine: Endocrine: Denies fatigue Allergic/Immunologic: Allergic/Immunologic: Denies itchy eyes PMFSH Past Medical History Medical History Prostate cancer Radiculopathy due to lumbar intervertebral disc disorder Trigger finger, left ring finger Trigger finger, right ring finger Surgical History Surgical History History of arthroplasty of left shoulder History of knee replacement (~03/2018) right knee History of knee replacement (~03/2019) left Presence of right artificial knee 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
[2023-09-01 09:23] VITALS: BP 140/62; PULSE 78; RESP 16; TEMP 36.6; O2SAT 96
== END 2023-09-01 09:58 | disposition home or self-care (01) ==
PROVIDERS: Emergency Provider Nurse Practitioner Family; PCP Family Medicine
DX: J06.9 Acute upper respiratory infection, unspecified (principal); Z20.822 Contact with and (suspected) exposure to COVID-19; Z85.46 Personal history of malignant neoplasm of prostate; M51.36 Other intervertebral disc degeneration, lumbar region; Z96.653 Presence of artificial knee joint, bilateral
CPT/HCPCS: 36415; 71046; 80053; 85025; 87426; 87804; 93005; 99213; G0463

== ENCOUNTER 2023-09-01 20:50 | Emergency (ER) | payer MEDICARE, SELFPAY ==
--- NOTE | 2023-09-01 20:51 | ECG_ITS ---
Measurements Intervals [place] Rate: 76 P: 47 ND: 162 QRS: -2 QRSD: 91 T: 50 QT: 358 QTc: 404 Interpretive Statements SINUS RHYTHM WITH MARKED SINUS ARRHYTHMIA BASELINE ARTIFACT- AVF NORMAL ECG COMPARED TO ECG 03/30/2023 15:10:52 SINUS RHYTHM NOW PRESENT SINUS ARRHYTHMIA NOW PRESENT Electronically Signed On 09-02-2023 6:32:08 RENAL MEDICINE SPECIALIST by Adi Matute D.O.
[2023-09-01 21:10] VITALS: BP 136/58; PULSE 81; RESP 17; TEMP 36.6; O2SAT 96
[2023-09-01 21:15] LABS: Basophils Absolute Auto 0.1 K/mm3 (0.0-0.1); Basophils Percent Auto 0.8 % (0.2-1.2); Eosinophils Absolute Auto 0.1 K/mm3 (0-0.3); Hematocrit 38.4 % (42.0-52.0); Hemoglobin 12.1 g/dL (14.0-18.0); Immature Granulocyte Absolute 0.01 K/mm3 (0.00-0.031); Immature Granulocyte Percent A 0.1 % (0-0.5); Lymphocytes Absolute Auto 0.93 K/mm3 (0.9-3.2); Mean Corpuscular HGB Conc 31.5 g/dl (32-36); Mean Corpuscular Hemoglobin 29.9 pg (26-34); Mean Corpuscular Volume 94.8 fl (80-100); Mean Platelet Volume 8.8 fl (7.4-10.4); Monocytes Absolute Auto 0.9 K/mm3 (0.1-0.6); Monocytes Percent Auto 12.8 % (2.6-8.5); Neutrophils Absolute Auto 5.1 K/mm3 (1.3-6.7); Neutrophils Percent Auto 71.3 % (45.5-73.1); Platelet Count Result 171 k/mm3 (150-375); Red Blood Count 4.05 M/mm3 (4.6-6.20); White Blood Count 7.2 K/mm3 (4.5-10.0)
[2023-09-01 21:28] LABS: Alanine Aminotransferase 19 U/L (6-50); Albumin Level 3.7 g/dL (3.5-5.1); Alkaline Phosphatase 95 U/L (38-126); Anion Gap 3 mmol/L (8-16); Aspartate Amino Transferase 21 U/L (17-59); Bilirubin,Total 0.6 mg/dL (0.2-1.3); Blood Urea Nitrogen 21 mg/dL (9-20); Calcium 8.5 mg/dL (8.4-10.2); Carbon Dioxide 30 mmol/L (22-30); Chloride 104 mmol/L (98-107); Estimated CRCL calculation 104 ml/min; Estimated Glomerular Filt Rate > 60; Glucose 136 mg/dL (65-110); Potassium 3.6 mmol/L (3.4-5.0); Sodium 137 mmol/L (137-145)
--- NOTE | 2023-09-01 23:59 | PC.NURSE ---
Pt LWBS. Pt educated on risks/benefits of leaving. This RN educated pt on s/sx that warrant a return visit.
== END 2023-09-01 23:59 | disposition left against medical advice (07) ==
PROVIDERS: Emergency Provider Emergency Medicine; PCP Family Medicine
DX: R06.02 Shortness of breath (principal)
CPT/HCPCS: 36415; 80053; 85025; 93005; 99199

== ENCOUNTER 2023-09-02 14:16 | Outpatient (CLI) | payer MEDICARE, SELFPAY | END 2023-09-02 14:17 | disposition home or self-care (01) | PROVIDERS: PCP Family Medicine; Visit Provider Nurse Practitioner Family | DX: R06.02 Shortness of breath (principal) | CPT/HCPCS: 36415; 85380 ==

== ENCOUNTER 2023-09-07 10:35 | Outpatient (CLI) | payer MEDICARE, SELFPAY ==
--- NOTE | ~2023-09-07 | XR_ITS ---
Right Shoulder Technique: AP and scapular Y views were obtained. Clinical History: Postoperative COMPARISON: 08/16/2023 Findings: No fracture or dislocation is seen. Reverse shoulder arthroplasty hardware is unchanged. So ft tissues are unremarkable. Impression: Stable reverse shoulder arthroplasty. Reviewed, dictated and finalized at location . Impression: Stable reverse shoulder arthroplasty.
== END 2023-09-07 10:36 | disposition home or self-care (01) ==
PROVIDERS: PCP Family Medicine; Visit Provider Orthopaedic Surgery
DX: Z47.1 Aftercare following joint replacement surgery (principal)
CPT/HCPCS: 73030

== ENCOUNTER 2023-10-05 09:45 | Outpatient (CLI) | payer MEDICARE, SELFPAY ==
--- NOTE | ~2023-10-05 | XR_ITS ---
Left Shoulder Technique: AP and axillary views were obtained. Clinical History: Postoperative COMPARISON: 09/07/2023 Findings: No fracture or dislocation is seen. Stable right shoulder arthroplasty. Soft tissues are un remarkable. Impression: Stable right shoulder arthroplasty. Reviewed, dictated and finalized at location . Impression: Stable right shoulder arthroplasty.
== END 2023-10-05 09:46 | disposition home or self-care (01) ==
PROVIDERS: PCP Family Medicine; Visit Provider Orthopaedic Surgery
DX: Z47.1 Aftercare following joint replacement surgery (principal)
CPT/HCPCS: 73030

== ENCOUNTER 2023-11-24 14:48 | Outpatient (CLI) | payer MEDICARE, SELFPAY ==
--- NOTE | 2023-11-24 14:55 | ECG_ITS ---
[address] Test Date: 2023-11-24 Pat Name: Clark Menard Department: Room: Gender: Excavating Machine Operator: : [id number] Requested By: Adi Anna Order Number: [id number] Reading MD: Adi Matute D.O. Measurements Intervals [place] Rate: 57 P: 66 SD: 190 QRS: 62 QRSD: 104 T: 69 QT: 449 QTc: 437 Interpretive Statements SINUS BRADYCARDIA BORDERLINE ECG No previous ECG available for comparison Electronically Signed On 11-24-2023 16:50:23 CDT by Adi Matute D.O.
== END 2023-11-24 14:49 | disposition home or self-care (01) ==
PROVIDERS: PCP Family Medicine; Visit Provider Internal Medicine Cardiovascular Disease
DX: I48.0 Paroxysmal atrial fibrillation (principal); R00.1 Bradycardia, unspecified
CPT/HCPCS: 93005

== ENCOUNTER 2023-11-30 10:49 | Outpatient (CLI) | payer MEDICARE, SELFPAY ==
--- NOTE | ~2023-11-30 | MMUS_ITS ---
EXAMINATION: MM diagnostic rahul LT w deysi, US breast BI complete HISTORY: Hypertrophy of the left breast. TECHNIQUE: Additional 3-D tomosynthesis images of the breasts were performed and synthetic 2-D images were generated. CAD analysis was submitted and interpreted. High resolution complete bilateral breas t ultrasound was performed. COMPARISON: None BREAST PARENCHYMAL COMPOSITION: Not dense: There are scattered areas of fibroglandular density. FINDINGS: MAMMOGRAPHIC FINDINGS: There is bilateral gynecomastia. No suspicious masses, calcifications or architectural distortion. ULTRASOUND: Complete bilateral US of all 4 quadrants of the breasts and retroareolar region was reviewed. There i s heterogeneous subareolar soft tissue bilaterally, consistent with gynecomastia. No suspicious boris s in either breast. IMPRESSION: 1. No evidence for malignancy in either breast. Benign gynecomastia. 2. Recommend follow-up clinical management for gynecomastia. BI-RADS Category 2: Benign finding(s). Reviewed, dictated and finalized at location B. IMPRESSION: 1. No evidence for malignancy in either breast. Benign gynecomastia. 2. Recommend follow-up clinical management for gynecomastia. BI-RADS Category 2: Benign finding(s).
== END 2023-11-30 10:50 | disposition home or self-care (01) ==
LOC: ANHIMG 10:51
PROVIDERS: PCP Family Medicine; Visit Provider Family Medicine
DX: N62 Hypertrophy of breast (principal)
CPT/HCPCS: 76641; 77061; 77065; G0279

== ENCOUNTER 2024-02-13 02:01 | Day surgery (SDC) | payer MEDICARE, SELFPAY ==
[2024-02-10 14:07] VITALS: BMI 35.6
[2024-02-13] VITALS (9 sets, daily range): BP systolic 97–143; BP diastolic 61–82; PULSE 48–83; RESP 17–20; TEMP 36.6; O2SAT 94–99; BMI 36.6
--- NOTE | 2024-02-13 07:00 | ECG_ITS ---
Test Date: 2024-02-13 07:35:38 Measurements Intervals [place] Rate: 80 P: 0 CA: 0 QRS: -2 QRSD: 103 T: 39 QT: 395 QTc: 458 Interpretive Statements ATRIAL FIBRILLATION ABNORMAL RHYTHM ECG ABNORMAL ECG Electronically Signed On 02-13-2024 11:01:09 CDT by Tanner Khan M.D.
[2024-02-13 08:07] LABS: Carbon Dioxide 29 mmol/L (22-30); Chloride 102 mmol/L (98-107); Potassium 4.5 mmol/L (3.4-5.0); Sodium 139 mmol/L (137-145)
[2024-02-13 08:08] LABS: Anion Gap 8 mmol/L (4-12); Blood Urea Nitrogen 23 mg/dL (9-20); Calcium 8.8 mg/dL (8.4-10.2); Estimated CRCL calculation 92 ml/min; Estimated Glomerular Filt Rate > 60; Glucose 107 mg/dL (65-110)
--- NOTE | 2024-02-13 08:15 | ECG_ITS ---
Test Date: 2024-02-13 08:35:30 Measurements Intervals [place] Rate: 52 P: 54 TN: 230 QRS: 0 QRSD: 117 T: 14 QT: 473 QTc: 441 Interpretive Statements SINUS BRADYCARDIA WITH FIRST DEGREE AV BLOCK MODERATE INTRAVENTRICULAR CONDUCTION DELAY [110+ ms QRS DURATION] NONSPECIFIC T-WAVE ABNORMALITY ABNORMAL ECG Electronically Signed On 02-13-2024 11:01:35 CDT by Tanner Khan M.D.
--- NOTE | 2024-02-13 09:47 | WPDCARDVER ---
Cardioversion Cardioversion Date of procedure: 02/13/24 Pre-op diagnosis: Atrial fibrillation Post-op diagnosis: Same Indications: Symptomatic atrial fibrillation Description of procedure: Risks/benefits/alternative to DC cardioversion discuss with patient and he is agreeable to it. He is monitored electrocardiographically, vitals and pulse ox. Defibrillator pads placed on anterior and posterior chest. HR is 80 bpm in atrial fibrillation, BP 148/100 mmHg, Pulse ox 96% on RA. Patient was given moderate sedation with Fentanyl 50 mcg, Versed 3 mg. Defibrillation set at 200 J synchronized biphasic energy and shocked x1 with successful cardioversion to sinus rhythm at 54 bpm. Sedation: As above. Conclusion: 1. Successful DC cardioversion from atrial fibrillation to Sinus rhythm. [facility] Billing for Cardioversion: Cardioversion
== END 2024-02-13 09:55 | disposition home health service (06) ==
PROVIDERS: PCP Family Medicine; Visit Provider Internal Medicine Cardiovascular Disease
PROC: 5A2204Z Restoration of Cardiac Rhythm, Single (ICD-10-PCS; principal; 2024-02-13 08:00)
DX: I48.0 Paroxysmal atrial fibrillation (principal); I48.92 Unspecified atrial flutter; I10 Essential (primary) hypertension; E78.5 Hyperlipidemia, unspecified; K21.9 Gastro-esophageal reflux disease without esophagitis; M17.0 Bilateral primary osteoarthritis of knee; Z79.01 Long term (current) use of anticoagulants; Z98.890 Other specified postprocedural states; Z96.653 Presence of artificial knee joint, bilateral; Z85.46 Personal history of malignant neoplasm of prostate; Z86.010 Personal history of colon polyps; Z80.7 Family history of other malignant neoplasms of lymphoid, hematopoietic and related tissues; Z82.49 Family history of ischemic heart disease and other diseases of the circulatory system
CPT/HCPCS: 36415; 80048; 83735; 92960; J2250; J3010; J7030

== ENCOUNTER 2024-03-01 12:50 | Outpatient (CLI) | payer MEDICARE, SELFPAY ==
--- NOTE | ~2024-03-01 | XR_ITS ---
AP view of the pelvis and AP and lateral views of the left hip Clinical history: Pain Findings: No acute fracture or dislocation is seen. Osseous alignment is anatomic. Bilateral hip and SI joint spaces are preserved. Soft tissues are unremarkable. Impression: No significant abnormality is seen. Reviewed, dictated and finalized at [facility]. Impression: No significant abnormality is seen.
== END 2024-03-01 12:51 | disposition home or self-care (01) ==
LOC: ANHIMG 12:54
PROVIDERS: PCP Family Medicine; Visit Provider Orthopaedic Surgery
DX: M25.552 Pain in left hip (principal)
CPT/HCPCS: 73502